=== PATIENT | female | born 1970 | race Caucasian/White ===

== ENCOUNTER 2023-09-01 13:22 | Outpatient (AMB) | payer MEDICAID, SELFPAY ==
--- NOTE | 2023-09-01 13:32 | MHC.PC.OV ---
Vital Signs 09/01/23 13:34 Height 5 ft 5 in Weight 177 lb BMI 29.5 BP 126/72 Blood Pressure Location Rt brachial Position Sitting Pulse 68 Pulse Source Pulse Oximeter Pulse Oximetry (%) 98 Oxygen Delivery Method Room Air Intake Visit Reasons: New patient PE per DR Humphrey Intake Note: pt is here for new patient appt, physical exam. concerns about varicose veins, requesting pap smear today due, patient is also due to colonoscopy and mammogram Strip Deburrer Required: Yes Strip Deburrer Language: Cape Verdean Information Interpreted: non-clinical & clinical Accompanied by: Daughter Allergies No Known Allergies Allergy (Verified 09/01/23 13:37) Medication List - Last Reconciled 09/01/23 by Arlette Humphrey MD No Known Home Meds Tobacco use date assessed: 09/01/23 Dental Screening Dental Screen Date: 09/01/23 Did you have a dental visit in the last 12 months?: Yes Did you have a dental problem in the last 6 months where you did not have access to dental care?: No Was dental information given to patient?: Patient has dentist HPI New patient PE per DR Humphrey HPI Details 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 She came from [facility] 5 months ago. [facility] Surgical History (Updated 09/01/23 @ 14:10 by Arlette Humphrey MD) S/P sclerotherapy of varicose veins Family History (Updated 09/01/23 @ 13:40 by Richmond Barahona [facility]) Other Leukemia Social History (Updated 09/01/23 @ 13:58 by Arlette Humphrey MD) Household Members Other:: , 2 children Housing: House Alcohol intake: never Patient Tobacco Use Status: Never used Tobacco e-Cigarette/Vaping Use: Never Used Current occupational status: unemployed Cognitive needs: No Hearing needs: No Vision needs: No Questionnaire PHQ-9 Over the last 2 weeks, how often have you been bothered by any of the following problems? 1. Little interest or pleasure in doing things: not at all 2. Feeling down, depressed, or hopeless: not at all 3. Trouble falling or staying asleep, or sleeping too much: not at all 4. Feeling tired or having little energy: not at all 5. Poor appetite or overeating: not at all 6. Feeling bad about yourself - or that you are a failure or have let yourself or your family down: not at all 7. Trouble concentrating on things, such as reading the newspaper or watching television: not at all 8. Moving or speaking so slowly that other people could have noticed. Or the opposite - being so fidgety or restless that you have been moving around a lot more than usual: not at all 9. Thoughts that you would be better off or of hurting yourself in some way: not at all Total score: 0 Depression Screening Interpretation: Negative Depression Screening Done: Yes 42503 - PHQ-9 Billing: Yes Source: Developed by Drs. Onur Mane, Jaqui Jean-Baptiste, Jordin Romero and colleagues, with an educational hamlet from [email or web address]. Thrive Questionnaire Date Thrive assessed: 09/01/23 I am a: Patient What is your living situation today?: I have a steady place to live Within the past 12 months, did the food you bought not last and you didn't have the money to get more?: Never true Within the past 12 months, did you worry whether your food would run out before you got money to buy more?: Never true Do you have trouble paying for medicines?: No Do you have trouble getting transportation to medical appointments?: No Do you have trouble paying your heating and electricity bill?: No Do you have trouble taking care of your child, family member or friend?: No Do you have trouble with day-to-day activities such as bathing, preparing meals, shopping, managing finances, etc.?: No Are you currently unemployed and looking for a job?: No Are you interested in more education?: No Please select the resources that you would like help with: None Currently or been in a relationship where the following occur: no concerns reported AUDIT C Alcohol Use Questionnaire (AUDIT-C) 1. How often do you have a drink containing alcohol?: Never 3. How often do you have six or more drinks on one occasion?: Never Total Score: 0 Score Reviewed/Action Taken: Yes ALICIA-7 AMB Questionnaire ALICIA-7 Date ALICIA - 7 assessed: 09/01/23 Feeling nervous, anxious, or on edge: 0 = Not at all Not being able to stop or control worryin = Not at all Worrying too much about different things: 0 = Not at all Trouble relaxin = Not at all Being so restless that it is hard to sit still: 0 = Not at all Becoming easily annoyed or irritable: 0 = Not at all Feeling afraid as if something awful might happen: 0 = Not at all Total ALICIA-7 score (0-4 normal; 5-9 mild; 10-14 moderate; 15-21 severe): 0 Source: Developed by Drs. Onur Mane, Jaqui Jean-Baptiste, Jordin Romero and colleagues, with an educational hamlte from [email or web address]. ALICIA-7 Assessment Billing ALICIA-7 Assessment Tool: ALICIA-7 Assessment 55985 Review of Systems Const All systems reviewed & are unremarkable except as noted in HPI and below Reports no additional complaints Eyes Reports no additional complaints ENT Reports no additional complaints Card Reports no additional complaints Resp Reports no additional complaints GI Reports no additional complaints Reports no additional complaints Musc Reports no additional complaints Physical exam (Primary Care) Vital Signs: Last Vital Signs Pulse 68 09/01/23 13:34 BP 126/72 09/01/23 13:34 Pulse Ox 98 09/01/23 13:34 Oxygen Delivery Method Room Air 09/01/23 13:34 BMI result Body Mass Index 29.5 Tobacco/Smoking Status: Tobacco use Status Tobacco use date assessed 09/01/23 09/01/23 13:42 Patient Tobacco Use Status Never used Tobacco 09/01/23 13:42 e-Cigarette/Vaping Use Never Used 09/01/23 13:42 PHQ-9: PHQ-9 Score PHQ-9: Total score 0 09/01/23 13:46 Depression Screening Interpretation: Negative Thrive Assessment: Date of Thrive Assessment Date Thrive assessed 09/01/23 09/01/23 13:46 Currently or been in a relationship where the following occur: no concerns reported Const General: no acute distress HENMT Head: Yes normal to inspection Ears: hearing grossly normal bilaterally Face and sinus: Yes normal facial exam Throat: Yes posterior oropharynx normal Eyes General: appearance normal, both eyes and all related structures Neck Neck: Yes no lymphadenopathy and Yes supple Thyroid: diffusely enlarged Resp Effort & Inspection: normal respiratory effort Auscultation: clear to auscultation bilaterally Cardio Rhythm: regular rhythm Heart sounds: S1 normal heart sound present and S2 normal heart sound present GI Inspection: Yes normal to inspection Palpation (GI): Soft to palpation Percussion: Yes normal to percussion Auscultation: normal bowel sounds Extrem Other: Slightly decreased range of motion and crepitus of the right knee, no soft tissue swelling erythema warmth General: Yes no clubbing, cyanosis or edema Assessment and Plan Assessment & Plan (1) Annual physical exam: Code(s): Z00.00 - Encounter for general adult medical examination without abnormal findings Plan: Well-balanced diet and regular physical activity discussed with the patient. she will return for fasting blood work, mammogram will be scheduled and patient will be referred to GI for colonoscopy (2) Thyroid nodule: Code(s): E04.1 - Nontoxic single thyroid nodule Plan: Obtain thyroid ultrasound (3) Hx of partial thyroidectomy: Comment: in [facility] for nodules Code(s): E89.0 - Postprocedural hypothyroidism (4) Normal pelvic exam: Comment: 2022 [facility] Code(s): Z01.419 - Encounter for gynecological examination (general) (routine) without abnormal findings (5) Varicose veins of both lower extremities: Code(s): I83.93 - Asymptomatic varicose veins of bilateral lower extremities Orders: Orders Complete Blood Count Auto Diff Today E04.1 - Nontoxic single thyroid nodule, E89.0 - Postprocedural hypothyroidism, Z00.00 - Encounter for general adult medical examination without abnormal findings MM screening mammo BI Today Z12.31 - Encounter for screening mammogram for malignant neoplasm of breast US thyroid Today E04.1 - Nontoxic single thyroid nodule, E89.0 - Postprocedural hypothyroidism Comprehensive [place]. Panel Fast Today E04.1 - Nontoxic single thyroid nodule, E89.0 - Postprocedural hypothyroidism, Z00.00 - Encounter for general adult medical examination without abnormal findings Lipid Panel Today E04.1 - Nontoxic single thyroid nodule, E89.0 - Postprocedural hypothyroidism, Z00.00 - Encounter for general adult medical examination without abnormal findings TSH reflex Free T4 Today E04.1 - Nontoxic single thyroid nodule, E89.0 - Postprocedural hypothyroidism, Z00.00 - Encounter for general adult medical examination without abnormal findings Referrals Gastroenterology Referral Z00.00 - Encounter for general adult medical examination without abnormal findings Coding Level of Care Code New Pt Prev Care 40-64y(34535) Diagnoses Annual physical exam Z00.00 Thyroid nodule E04.1 Hx of partial thyroidectomy E89.0 Normal pelvic exam Z01.419 Varicose veins of both lower extremities I83.93 Additional Codes ALICIA-7 Assessment Billing - ALICIA-7 Assessment Tool: ALICIA-7 Assessment [id number] ([id number])
[2023-09-01 13:34] VITALS: BP 126/72; PULSE 68; O2SAT 98; BMI 29.5
== END 2023-09-01 14:18 | disposition home or self-care (01) ==
PROVIDERS: Visit Provider Internal Medicine
DX: Z00.00 Encounter for general adult medical examination without abnormal findings (principal); E04.1 Nontoxic single thyroid nodule; E89.0 Postprocedural hypothyroidism; Z01.419 Encounter for gynecological examination (general) (routine) without abnormal findings; I83.93 Asymptomatic varicose veins of bilateral lower extremities
CPT/HCPCS: 99386

== ENCOUNTER 2023-09-22 13:51 | Outpatient (REF) | payer MEDICAID, SELFPAY ==
--- NOTE | ~2023-09-22 | MM_ITS ---
EXAMINATION: MM SCREENING DIGITAL BREAST TOMOSYNTHESIS, BILATERAL CLINICAL INFORMATION: Screening. Asymptomatic. COMPARISON: Mammography: There are no prior mammograms available for comparison. TECHNIQUE: Digital breast tomosynthesis is performed in both the craniocaudal and mediolateral oblique views along with computer-aided detection (CAD). Synthesized 2D images are generated from the tomosynthesis. FINDINGS: There are scattered areas of fibroglandular density (ACR BI-RADS breast composition Category b). In the deep third of the superior aspect of the left breast, there is an irregularly shaped asymmetry for which additional mammographic and targeted sonographic evaluation is advised. In the right breast, there are no significant masses, abnormal calcifications, or other abnormalities. MM/MM tomosynthesis screening BI IMPRESSION: Asymmetry of the left breast warrants additional mammographic and targeted sonographic evaluation. A laterally exaggerated CC view of the left breast should be added to the diagnostic imaging protocol. No mammographic signs of malignancy right breast. ASSESSMENT: BI-RADS BI-RADS 0 - Incomplete: Needs additional Imaging. RECOMMENDATION: 1. Additional views of the left breast. 2. Targeted ultrasound if warranted after review of the additional views. 3. Radiology department staff will contact the patient for additional imaging. Additional Imaging required This examination should not preclude the clinical evaluation of a suspicious palpable abnormality. This patient's information was entered into a reminder system with a target due date for their next mammogram.
== END 2023-09-22 13:52 | disposition home or self-care (01) ==
LOC: HO.MAMMO 13:51
PROVIDERS: PCP Internal Medicine; Visit Provider Internal Medicine
DX: Z12.31 Encounter for screening mammogram for malignant neoplasm of breast (principal)
CPT/HCPCS: 77063; 77067

== ENCOUNTER → 2023-09-22 14:00 | Outpatient (BNV) | payer MEDICAID, SELFPAY | PROVIDERS: PCP Internal Medicine; Visit Provider Radiology Diagnostic Radiology | DX: Z12.31 Encounter for screening mammogram for malignant neoplasm of breast (principal) | CPT/HCPCS: 77063; 77067 ==

== ENCOUNTER 2023-11-11 13:23 | Outpatient (REF) | payer MEDICAID, SELFPAY ==
--- NOTE | ~2023-11-11 | US_ITS ---
EXAMINATION: MM DIAGNOSTIC DIGITAL BREAST TOMOSYNTHESIS, LEFT US BREAST LIMITED, LEFT MAMMOGRAPHY: CLINICAL INFORMATION: Callback diagnostic mammogram and ultrasound for irregular asymmetry in the superior aspect of the left breast, posterior one third. COMPARISON: Mammography: 09/22/2023 baseline exam. TECHNIQUE: Digital breast tomosynthesis is performed in the following views: Full-field left 3-D mediolateral view, full-field left 3-D laterally exaggerated CC view, and small paddle spot 3-D compression left MLO view were obtained. Computer-aided diagnosis was used for this study. FINDINGS: There are scattered areas of fibroglandular density (ACR BI-RADS breast composition Category b). Within the high axillary tail of the left breast, or possibly within the low left axilla, there is a stellate irregular mass measuring 1.2 cm in diameter on mammography, which can only be visualized on the mediolateral, and spot MLO views. It is too far posterior to be seen on the exaggerated lateral CC view. This will be evaluated by ultrasound but is a suspicious abnormality. Otherwise, no new or suspicious finding is evident within the left breast. ULTRASOUND: CLINICAL INFORMATION: Evaluate stellate mass in the left axillary tail/left lower axilla. COMPARISON: None TECHNIQUE: Targeted sonographic evaluation was performed using a high frequency linear transducer. Attention focused on the left axillary tail and axilla. Selected archived documentation. FINDINGS: LEFT BREAST: Within what appears to be the left axillary tail, there is a irregular markedly hypoechoic mildly vascular mass, with no definite posterior features, microlobulated irregular margins, and surrounding hyperechoic fat. There is sonographic equivalent of spiculation. This abnormality abuts the pectoralis fascia and measures approximately 1.2 x 0.8 x 0.8 cm. This is a suspicious abnormality and ultrasound-guided biopsy is recommended. There are no additional suspicious abnormalities in the left axillary tail or left axilla. There are no abnormal appearing lymph nodes identified. US/US breast LT limited mamm only IMPRESSION: Irregular suspicious mass in the left axillary tail measuring 1.2 x 0.8 x 0.8 cm, for which ultrasound-guided biopsy is recommended. There is no abnormal adenopathy seen in the left axillary region. There are no new abnormalities or suspicious abnormalities identified within the left breast. Findings and recommendations were communicated to the patient with the aid of the translation phone service, as patient only speaks [place]. She appeared to understand the findings and plan. OVERALL ASSESSMENT: Mammography: BI-RADS 4 - Suspicious finding Ultrasound: BI-RADS 4 - Suspicious finding RECOMMENDATION: Biopsy recommended
== END 2023-11-11 13:24 | disposition home or self-care (01) ==
LOC: HO.MAMMO 13:23
PROVIDERS: PCP Internal Medicine; Visit Provider Internal Medicine
DX: N64.89 Other specified disorders of breast (principal)
CPT/HCPCS: 76642; 77061; 77065

== ENCOUNTER → 2023-11-11 13:30 | Outpatient (BNV) | payer MEDICAID, SELFPAY | PROVIDERS: PCP Internal Medicine; Visit Provider Radiology Diagnostic Radiology | DX: R92.8 Other abnormal and inconclusive findings on diagnostic imaging of breast (principal) | CPT/HCPCS: 76642; 77061; 77065 ==

== ENCOUNTER 2023-11-17 08:38 | Outpatient (AMB) | payer MEDICAID, SELFPAY ==
--- NOTE | 2023-11-17 08:46 | MHC.OFFVIS ---
Intake Vital Signs 11/17/23 08:47 Height 5 ft 5 in Weight 180 lb BMI 30.0 BP 132/65 Blood Pressure Location Rt brachial Position Sitting Pulse 67 Intake Visit Reasons: US guided Bx Lt breast 2 o'clock mass Intake Note: This patient presents for a breast consult for Ultrasound guided biopsy for left breast 2 o'clock mass. Patient c/o; reports occasional pain left breast. Dye House Helper Required: Yes Dye House Helper Language: [place] Leonean Dye House Helper Name: [id number] Information Interpreted: non-clinical & clinical Accompanied by: Daughter Allergies No Known Allergies Allergy (Verified 11/17/23 08:51) HPI US guided Bx Lt breast 2 o'clock mass HPI Details 53-year-old female referred for breast mass. She had undergone a screening mammogram showing this mass on the left breast near the axillary tail. She was brought back for targeted studies. Her ultrasound and targeted mammogram show an irregular suspicious mass in the left axillary tail measuring about 1.2 x 0.8 x 0.8 cm. An ultrasound-guided biopsy was recommended. She denies any palpable breast masses. She denies any nipple or skin changes Her menarche was at age of 12. Her 1st was at age of 17. She had 3 pregnancies. She had menopause at age of 48. She denies any family history of breast cancer. [facility] Medical History (Updated 11/16/23 @ 16:13 by Telly Bundy MD) Left breast mass Surgical History (Updated 09/01/23 @ 14:10 by Arlette Humphrey MD) S/P sclerotherapy of varicose veins Family History (Updated 09/01/23 @ 13:40 by Richmond Barahona CMA) Mother No problems noted. Other Leukemia Social History (Updated 09/01/23 @ 13:58 by Arlette Humphrey MD) Household Members Other:: , 2 children Housing: House Alcohol intake: never Patient Tobacco Use Status: Never used Tobacco e-Cigarette/Vaping Use: Never Used Current occupational status: unemployed Cognitive needs: No Hearing needs: No Vision needs: No Female Reproductive History Menstrual Age of Menarche: 12 Total pregnancies: 2 Review of Systems Const Denies chills and Denies fever(s) Card Denies chest pain, Denies dyspnea and Denies dyspnea on exertion Resp Denies cough, Denies dyspnea and Denies dyspnea on exertion GI Denies hematochezia and Denies change in bowel habits Denies hematuria Musc Denies back pain and Denies limited range of motion Neuro Denies focal weakness and Denies convulsions Psych Denies depression and Denies mood swings Physical Exam Const General: comfortable and no acute distress Orientation/consciousness: patient oriented x3 Neck Neck: Yes no lymphadenopathy Chest Other: No palpable breast masses, no nipple or skin changes, no axillary lymphadenopathy Resp Auscultation: clear to auscultation bilaterally Cardio Rhythm: regular rhythm GI Palpation (GI): Soft to palpation, nontender and no guarding Neuro General: patient oriented x3 Assessment & Plan Assessment & Plan (1) Left breast mass: Code(s): N63.20 - Unspecified lump in the left breast, unspecified quadrant Plan: She has a left breast mass on the axillary tail as described above. An ultrasound-guided biopsy had been recommended by the radiologist. I explained to her the technique of this procedure. I will see her again next week to discuss the path report. The visit was done in the presence of a [place]an lead net software developer. Orders: Orders US breast ndl core biopsy LT 11/16/23 N63.20 - Unspecified lump in the left breast, unspecified quadrant Coding Level of Care Code New Pt Level 3 (96105) Diagnoses Left breast mass N63.20
[2023-11-17 08:47] VITALS: BP 132/65; PULSE 67
== END 2023-11-17 09:04 | disposition home or self-care (01) ==
PROVIDERS: PCP Internal Medicine; Visit Provider Surgery
DX: N63.20 Unspecified lump in the left breast, unspecified quadrant (principal)
CPT/HCPCS: 99203

== ENCOUNTER 2023-11-17 09:09 | Outpatient (REF) | payer MEDICAID, SELFPAY ==
--- NOTE | ~2023-11-17 | MM_ITS ---
PROCEDURE: US GUIDED BREAST BIOPSY, LEFT CLINICAL INFORMATION: Irregular hypoechoic mass within the lower axilla, likely in the tail of Vigil, for which ultrasound-guided biopsy was recommended. COMPARISON: None. PROCEDURAL DETAILS: The details of the procedure, as well as the risks, benefits, and alternatives to the procedure were explained to the patient in detail with the use of mexican food maker services, and all of her questions were answered, after which written informed consent was obtained. Site and side were confirmed. Prior to the procedure, sonography revealed a 1.2 x 0.8 x 0.8 irregular hypoechoic mass in the left tail of Vigil. A time-out was performed, the lesion intended for biopsy was targeted, and the skin of the left breast was then marked, prepped and draped in the usual sterile fashion. Using sonographic guidance, sterile technique, and 1% lidocaine without epinephrine for local anesthesia, multiple core biopsies were obtained through the targeted area with a 14G spring loaded TenderTreeera core biopsy device. There was real-time confirmation of appropriate needle passage. Sampling was documented. At the completion of tissue sampling, a single butterfly-shaped metallic clip was deposited at the biopsy site. There was no evidence of immediate complication. SPECIMEN: 3 well formed core samples were obtained. DIGITAL POST-PROCEDURE MAMMOGRAPHY: Breast density: The tissue contains scattered areas of fibroglandular density. BI-RADS version 5, category B. There are no new mammographic findings demonstrated. The postprocedure one view MLO left direct digital mammogram reveals satisfactory and accurate positioning of the biopsy clip. No hematoma present. The patient tolerated the procedure well and, after assuring adequate hemostasis, was discharged in good condition after reviewing postbiopsy breast care instructions. Final pathology results are pending. MM/MM tomosynthesis diagnostic LT IMPRESSION: 1. No immediate complication from ultrasound-guided percutaneous biopsy left breast. 2. Ultrasound was used to localize and guide marker clip placement. 3. The 1-view direct digital postprocedure mammogram reveals satisfactory positioning of the biopsy clip. CC view was not attempted as this clip/mass is positioned too far in the low axilla to be seen on even an exaggerated CC. 4. Final pathology results are pending. A separate report with final recommendations will be issued once these results are made available.
[2023-11-17] MEDS: Sodium Bicarbonate 8.4% 50 MEQ/50 ML VIAL SUBCUT (10:50)
[2023-11-17] MEDS: Lidocaine HCl 1 % 20 ML VIAL 9 ML SUBCUT (10:51)
== END 2023-11-17 09:10 | disposition home or self-care (01) ==
LOC: HO.MAMMO 09:09
PROVIDERS: PCP Internal Medicine; Visit Provider Surgery
DX: C50.412 Malignant neoplasm of upper-outer quadrant of left female breast (principal); Z17.0 Estrogen receptor positive status [ER+]
CPT/HCPCS: 19083; 77061; 77065; 88305; 88342; 88360; 99202; A4648; C1894

== ENCOUNTER → 2023-11-17 10:00 | Outpatient (BNV) | payer MEDICAID, SELFPAY | PROVIDERS: PCP Internal Medicine; Visit Provider Radiology Diagnostic Radiology | DX: D05.02 Lobular carcinoma in situ of left breast (principal) | CPT/HCPCS: 19083 ==

== ENCOUNTER 2023-11-24 10:25 | Outpatient (AMB) | payer OTHER, SELFPAY ==
[2023-11-24 10:30] VITALS: BP 136/88; PULSE 88
--- NOTE | 2023-11-24 10:30 | A.OFFVIS_ITS ---
Intake Vital Signs 11/24/23 10:30 Height 5 ft 5 in Weight 180 lb BMI 30.0 BP 136/88 Blood Pressure Location Rt brachial Position Sitting Pulse 88 Intake Visit Reasons: US guided Bx Results, Lt breast 2 o'clock mass Intake Note: This patient presents for an assessment for breast biopsy results. Patient c/o; reports bx site healing well. Corporate Buyer Required: No Accompanied by: daughter Sigifredo Allergies No Known Allergies Allergy (Verified 11/24/23 10:31) Medication List - Last Reconciled 11/24/23 by Telly Bundy MD No Known Home Meds HPI US guided Bx Results, Lt breast 2 o'clock mass HPI Details 53-year-old female here for follow-up fo r her left breast mass. She had undergone a screening mammogram showing this mass on the left breast near the axillary tail. She was brought back for targeted studies. Her ultrasound and targeted mammogram show an irregular suspicious mass in the left axillary tail measuring about 1.2 x 0.8 x 0.8 cm. An ultrasound-guided biopsy was done last 11/17/2023 and she is here to discuss the path report. She says she tolerated the biopsy well. She denies any hematoma or ecchymosis. She denies any palpable breast masses. She denies any nipple or skin changes Her menarche was at age of 12. Her 1st was at age of 17. She had 3 pregnancies. She had menopause at age of 48. She denies any family history of breast cancer. [facility] Medical History Invasive ductal carcinoma of left breast Left breast mass Surgical History S/P sclerotherapy of varicose veins Family History Mother No problems noted. Other Leukemia Social History Household Members Other:: , 2 children Housing: House Alcohol intake: never Patient Tobacco Use Status: Never used Tobacco e-Cigarette/Vaping Use: Never Used Current occupational status: unemployed Cognitive needs: No Hearing needs: No Vision needs: No Female Reproductive History Menstrual Age of Menarche: 12 Review of Systems Const Denies chills and Denies fever(s) Card Denies chest pain, Denies dyspnea and Denies dyspnea on exertion Resp Denies cough, Denies dyspnea and Denies dyspnea on exertion GI Denies hematochezia and Denies change in bowel habits Denies hematuria Musc Denies back pain and Denies limited range of motion Neuro Denies focal weakness and Denies convulsions Psych Denies depression and Denies mood swings Physical Exam Vital Signs: Last Vital Signs Pulse 88 11/24/23 10:30 BP 136/88 11/24/23 10:30 BMI result Body Mass Index 30.0 Const General: comfortable and no acute distress Orientation/consciousness: patient oriented x3 Neck Neck: Yes no lymphadenopathy Chest Other: No palpable breast masses, axillary lymphadenopathy Resp Auscultation: clear to auscultation bilaterally Cardio Rhythm: regular rhythm GI Palpation (GI): Soft to palpation, nontender and no guarding Neuro General: patient oriented x3 Assessment & Plan Assessment & Plan (1) Invasive ductal carcinoma of left breast: Code(s): C50.912 - Malignant neoplasm of unspecified site of left female breast Plan: Unfortunately, her path report shows an invasive ductal carcinoma. This is ER/SC positive, HER2 pending. I explained to her treatment options at this time. One option is to proceed with lumpectomy followed by radiation and to do a sentinel biopsy at the same time. The 2nd option is to do a total mastectomy with sentinel node biopsy. I discussed the risks, benefits, and alternatives of both procedures. I told her that the risks include bleeding, infections, flap necrosis for mastectomy, hematoma formation, injury to the nerves in the axilla, blood clots, pneumonia, as well as the benefits and alternatives At this time, she is leaning towards total mastectomy with sentinel biopsy. She understands the option of breast reconstruction and she says she may consider this in the future. I will have her seen by the oncologist before the procedure. Her daughter was with her during the visit and they seemed to understand the plan well. Orders: Referrals Hematology & Oncology Referral C50.912 - Malignant neoplasm of unspecified site of left female breast Coding Level of Care Code Est Pt Level 4 (80097) Diagnoses Invasive ductal carcinoma of left breast C50.912
== END 2023-11-24 10:55 | disposition home or self-care (01) ==
PROVIDERS: PCP Internal Medicine; Visit Provider Surgery
DX: C50.912 Malignant neoplasm of unspecified site of left female breast (principal)
CPT/HCPCS: 99214

== ENCOUNTER → 2023-11-24 10:25 | Outpatient (BNVA) | payer OTHER, SELFPAY | PROVIDERS: PCP Internal Medicine; Visit Provider Surgery | DX: C50.912 Malignant neoplasm of unspecified site of left female breast (principal); Z17.0 Estrogen receptor positive status [ER+] | CPT/HCPCS: 99212 ==

== ENCOUNTER → 2023-12-01 13:00 | Outpatient (BNV) | payer OTHER, SELFPAY | PROVIDERS: PCP Neurological Surgery; Visit Provider Internal Medicine Medical Oncology | DX: C50.912 Malignant neoplasm of unspecified site of left female breast (principal) | CPT/HCPCS: 99204; 99213 ==

== ENCOUNTER 2023-12-14 08:45 | Outpatient (REF) | payer OTHER, SELFPAY ==
--- NOTE | ~2023-12-14 | MM_ITS ---
EXAMINATION: BONE DENSITOMETRY CLINICAL INDICATION: Osteopenia. Breast cancer. COMPARISON: This is the patient's baseline examination. TECHNIQUE: Using a [employer] DXA System (software version: 13.1) manufactured by [employer], dual-energy x-ray absorptiometry was performed of the lumbar spine and left hip. The images are of good technical quality. Summary results are attached. FINDINGS: LEFT FEMUR, NECK: BMD 0.831 g/cm2, Z-score -0.6, T-score -1.5, osteopenia. LEFT FEMUR, TOTAL: BMD 0.902 g/cm2, Z-score -0.3, T-score -0.8, normal. AP SPINE L1-L4: BMD 0.922 g/cm2, Z-score -1.5, T-score -2.2, osteopenia. IDENTIFIED RISK FACTORS: Menopause, osteoporosis. HISTORY OF FRACTURE: None listed. MEDICATIONS: None listed. MM/XR DEXA axial skeleton IMPRESSION: 1. DIAGNOSIS: Osteopenia based on the lowest T-score value of -2.2 in the lumbar spine applying World Health Organization criteria. 2. 10-YEAR FRACTURE RISK PREDICTION, FRAX: Major osteoporotic fracture (clinical spine, forearm, hip or shoulder) 6.9%. Hip fracture 0.5%. 3. Treatment Recommendations: NOF guidelines recommend consideration for treatment in postmenopausal women and men age 50 and older presenting with the following: -A hip or vertebral (clinical or morphometric) fracture. -T-score less than or equal to -2.5 at the femoral neck or spine after appropriate evaluation to exclude secondary causes. -Low bone mass at the hip or spine and a 10-year fracture probability by FRAX of greater than or equal to 3% for hip fracture or greater than or equal to 20% for major osteoporotic fracture based on the [place] adapted WHO algorithm. 4. Other Recommendations: All treatment decisions require clinical judgment and consideration of individual patient factors, including patient preferences, comorbidities, previous drug use, risk factors not captured in the FRAX model (e.g. frailty, falls, vitamin D deficiency, increased bone turnover, interval significant decline in bone density) and possible under or overestimation of fracture risk by FRAX. Additional medical evaluation for secondary cause of low bone mineral density may be appropriate. FUTURE SCAN RECOMMENDATION: People with diagnosed cases of osteoporosis or at high risk for fracture should have regular bone mineral density tests. For patients eligible for Medicare, routine testing is allowed once every 2 years. The testing frequency can be increased to one year for patients who have rapidly progressing disease, those who are receiving or discontinuing medical therapy to restore bone mass, or have additional risk factors.
== END 2023-12-14 08:46 | disposition home or self-care (01) ==
LOC: HO.MAMMO 08:45
PROVIDERS: PCP Internal Medicine; Visit Provider Neurological Surgery
DX: Z13.820 Encounter for screening for osteoporosis (principal); M85.80 Other specified disorders of bone density and structure, unspecified site; Z78.0 Asymptomatic menopausal state
CPT/HCPCS: 77080

== ENCOUNTER → 2023-12-15 07:19 | Day surgery (SDC) | payer OTHER, SELFPAY ==
--- NOTE | 2023-12-13 14:56 | HO.ANESPROP2 ---
HPI - Anesthesia Eval Consult details Narrative: 53yo F for Left Mastectomy Simple PMFSH Active Problems Active Problems: All Active Problems (Updated 12/01/23 @ 13:57 by Hector Blakely MD) Invasive ductal carcinoma of left breast (Acute) Left breast mass (Acute) Varicose veins of both lower extremities (Acute) Normal pelvic exam (Acute) Hx of partial thyroidectomy (Acute) Thyroid nodule (Acute) Annual physical exam (Acute) Past Medical History Medical History Invasive ductal carcinoma of left breast Left breast mass Family History Family History Mother No problems noted. Other Leukemia Surgical History Surgical History S/P sclerotherapy of varicose veins Social History Social History (Updated 12/01/23 @ 13:12 by Macey Todd) Household Members Other:: , 2 children Housing: House Alcohol intake: never Patient Tobacco Use Status: Never used Tobacco e-Cigarette/Vaping Use: Never Used service: No Current occupational status: unemployed Cognitive needs: No Hearing needs: No Vision needs: No Meds Allergies Allergy/AdvReac Type Severity Reaction Status Date / Time No Known Allergies Allergy Verified 12/01/23 13:12 Home Medications Medication Instructions Recorded Confirmed Last Taken Type No Known Home Meds 09/01/23 12/01/23 Unknown History Exam Height,Weight and Vital Signs: Height 5 ft 5 in Weight 81.647 kg Pertinent Lab Results Pertinent Lab Results: Laboratory Tests 12/01/23 13:57 WBC 7.7 Hgb 14.0 Hct 40.6 Plt Count 336 Sodium 142 Potassium 4.4 Chloride 108 Carbon Dioxide 25 BUN 20 H Creatinine 0.75 Assessment and Plan Assessment Anesthesia Assessment: Chart Reviewed
--- NOTE | ~2023-12-15 | MM_ITS ---
EXAMINATION: MM SPECIMEN X-RAY BREAST, LEFT BREAST CLINICAL INDICATION: Left breast invasive ductal carcinoma with lobular features, grade 1, and ductal carcinoma in situ grade 1. Surgical excision specimen. COMPARISON: Localization left breast for 12/19/2023. TECHNIQUE: 2 radiographs of 2 excised specimens of breast tissue were submitted post surgery. MM/MM surgical specimen FINDINGS/IMPRESSION: The first specimen radiograph contains the spiculated mass, a solitary rounded lymph node, and to the RFID tag centrally within the specimen. The second specimen submitted for review demonstrates the presence of a solitary lymph node centrally, however no biopsy clip is present in either of the specimens. In discussion with Dr. Bundy, the biopsy clip may have been suctioned or have fallen out of the specimen during transportation, however he is confident he excised the spiculated mass with RFID tag in entirety. Await pathology.
--- NOTE | 2023-12-15 08:34 | PC.NURSE ---
pt change mind wants lumpectomy dr shirley speaking to pt will reschedule
== END | disposition home or self-care (01) ==
PROVIDERS: PCP Internal Medicine; Visit Provider Surgery
DX: C50.912 Malignant neoplasm of unspecified site of left female breast (principal); Z53.29 Procedure and treatment not carried out because of patient's decision for other reasons

== ENCOUNTER 2023-12-19 07:56 | Outpatient (REF) | payer OTHER, SELFPAY ==
--- NOTE | ~2023-12-19 | MM_ITS ---
EXAMINATION: ULTRASOUND GUIDED RFID LOCALIZATION BREAST, LEFT CLINICAL INFORMATION: IDC grade 1, low left axilla, likely within tail of Vigil, for localization with RFID tag. COMPARISON: 11/17/2023 needle biopsy and post needle biopsy mammography. 11/11/2023 diagnostic ultrasound and mammography. 09/12/2023 screening mammography. TECHNIQUE NEEDLE LOC: Proper informed consent is obtained from the patient after discussion of the procedure, utilizing the b2b appointment setter surface via telephone. This patient speaks only Finnish. Potential risks and complications, and alternatives including declining the procedure today were discussed. Patient was given an opportunity for any and all questions. The patient appeared to understand. The patient consented to the procedure and signed the consent form. GUIDANCE: Real-time ultrasound. APPROACH: Lateral. TARGET: Mass with internal biopsy clip left low axilla. ANESTHESIA: carbonated lidocaine 1%: 5 mL. LOCALIZATION SYSTEM: [employer] LOCallizer Wire-Free Guidance System with 12g 7 CM needle applicator. RADIOFREQUENCY TAG: ID # [id number] DERMATOTOMY: 1 mm skin-ernestine dermatotomy performed. RF Tag ID confirmed with LOCalizer Guidance System prior to placement. The skin is prepped and local anesthesia administered. The needle is positioned with the tip in the mass lesion, and RFID tag was deployed. Final mammographic images taken including left MLO and Maritza view CC demonstrate the LOCalizer RF tag to reside directly abutting the biopsy clip and within the anterior aspect of the hypoechoic irregular mass. The patient tolerated the procedure well and had no immediate complications. Dressing placed and home instructions reviewed. MM/MM tomosynthesis diagnostic LT IMPRESSION: -Status post ultrasound-guided left breast RFID localization. -Final mammographic images were appropriately labeled for assistance in the OR.
--- NOTE | ~2023-12-19 | US_ITS ---
EXAMINATION: ULTRASOUND GUIDED RFID LOCALIZATION BREAST, LEFT CLINICAL INFORMATION: IDC grade 1, low left axilla, likely within tail of Vigil, for localization with RFID tag. COMPARISON: 11/17/2023 needle biopsy and post needle biopsy mammography. 11/11/2023 diagnostic ultrasound and mammography. 09/12/2023 screening mammography. TECHNIQUE NEEDLE LOC: Proper informed consent is obtained from the patient after discussion of the procedure, utilizing the director supplier quality surface via telephone. This patient speaks only Bhutanese. Potential risks and complications, and alternatives including declining the procedure today were discussed. Patient was given an opportunity for any and all questions. The patient appeared to understand. The patient consented to the procedure and signed the consent form. GUIDANCE: Real-time ultrasound. APPROACH: Lateral. TARGET: Mass with internal biopsy clip left low axilla. ANESTHESIA: carbonated lidocaine 1%: 5 mL. LOCALIZATION SYSTEM: [employer] LOCallizer Wire-Free Guidance System with 12g 7 CM needle applicator. RADIOFREQUENCY TAG: ID # [id number] DERMATOTOMY: 1 mm skin-ernestine dermatotomy performed. RF Tag ID confirmed with LOCalizer Guidance System prior to placement. The skin is prepped and local anesthesia administered. The needle is positioned with the tip in the mass lesion, and RFID tag was deployed. Final mammographic images taken including left MLO and Maritza view CC demonstrate the LOCalizer RF tag to reside directly abutting the biopsy clip and within the anterior aspect of the hypoechoic irregular mass. The patient tolerated the procedure well and had no immediate complications. Dressing placed and home instructions reviewed. US/US breast needle loc LT IMPRESSION: -Status post ultrasound-guided left breast RFID localization. -Final mammographic images were appropriately labeled for assistance in the OR.
[2023-12-19] MEDS: Lidocaine HCl 1 % 20 ML VIAL 9 ML SUBCUT (09:24)
[2023-12-19] MEDS: Sodium Bicarbonate 8.4% 50 MEQ/50 ML VIAL SUBCUT (09:25)
== END 2023-12-19 07:57 | disposition home or self-care (01) ==
LOC: HO.MAMMO 07:56
PROVIDERS: PCP Internal Medicine; Visit Provider Surgery
DX: N63.20 Unspecified lump in the left breast, unspecified quadrant (principal)
CPT/HCPCS: 19285; 77061; 77065; C1819

== ENCOUNTER → 2023-12-19 08:45 | Outpatient (BNV) | payer OTHER, SELFPAY | PROVIDERS: PCP Internal Medicine; Visit Provider Radiology Diagnostic Radiology | DX: C50.912 Malignant neoplasm of unspecified site of left female breast (principal) | CPT/HCPCS: 19085; 77065 ==

== ENCOUNTER 2024-01-05 09:47 | Day surgery (SDC) | payer OTHER, SELFPAY ==
--- NOTE | 2024-01-04 13:02 | P.CONAN_ITS ---
HPI - Anesthesia Eval Consult details Narrative: 53yo F for Left Breast Lumpectomy w/LOCalizer, [place] Node Biopsy PMFSH Active Problems Active Problems: All Active Problems Invasive ductal carcinoma of left breast (Acute) Left breast mass (Acute) Varicose veins of both lower extremities (Acute) Normal pelvic exam (Acute) Hx of partial thyroidectomy (Acute) Thyroid nodule (Acute) Annual physical exam (Acute) Past Medical History Medical History Endometrial polyp HTN (hypertension) Invasive ductal carcinoma of left breast Left breast mass Family History Family History Mother No problems noted. Other Leukemia Surgical History Surgical History Hx of partial thyroidectomy S/P sclerotherapy of varicose veins Social History Social History Household Members Other:: , 2 children Housing: House Alcohol intake: never Patient Tobacco Use Status: Never used Tobacco e-Cigarette/Vaping Use: Never Used Use of substances other than those prescribed or required for medical reasons: No Are you DNR?: No Advance Directives: No Advance Directives Information Provided: Yes Patient : No service: No Current occupational status: unemployed Cognitive needs: No Hearing needs: No Vision needs: No Meds Allergies Allergy/AdvReac Type Severity Reaction Status Date / Time No Known Allergies Allergy Verified 01/05/24 10:44 Exam Height,Weight and Vital Signs: Height 5 ft 5 in Weight 81.647 kg Pertinent Lab Results Pertinent Lab Results: Laboratory Tests 12/01/23 13:57 WBC 7.7 Hgb 14.0 Hct 40.6 Plt Count 336 Sodium 142 Potassium 4.4 Chloride 108 Carbon Dioxide 25 BUN 20 H Creatinine 0.75 Assessment and Plan Assessment Anesthesia Assessment: Chart Reviewed
[2024-01-05] VITALS (7 sets, daily range): BP systolic 108–133; BP diastolic 57–77; PULSE 47–66; RESP 15–18; TEMP 36.1–36.4; O2SAT 96–99
--- NOTE | ~2024-01-05 | NM_ITS ---
EXAMINATION: NM LYMPH SCINTIGRAPHY CLINICAL INFORMATION: Left breast invasive ductal carcinoma. COMPARISON: 11/17/2023, localization 12/19/2023 TECHNIQUE: A total of 0.5 mCi technetium 99m Lymphoseek was divided into 4 syringes aliquots of 0.125 mCi, and injected intradermally in the left periareolar at 12:00, 3:00, 6:00, and 9:00. Images were taken at 30 and 60 minutes in the anterior, SYRIAC, and left lateral positions. FINDINGS: Images demonstrate strong activity at the injection sites around the left nipple. At 60 minutes, no definite activity can be seen in the left axillary region or within a sentinel lymph node. NM/NM sentinel node w imaging IMPRESSION: No definite sentinel node identified on this exam.
[2024-01-05] MEDS: Lidocaine 4 % Cream KIT 1 APPL TOPICAL (10:42)
[2024-01-05] MEDS: Lactated Ringers 1,000 ML 100 ML IVCONT (11:12)
--- NOTE | 2024-01-05 13:07 | MHC.SHP ---
Pre-Procedural Eval Section A - 24 Hr Update-Section A only Date of Service: 01/05/24 Section B - Complete if H&P > 30 days Chief Complaint: Malignant neoplasm of unspecified site of left fem Details of Present Illness: has invasive ductal cancer left breast Relevant Family History (Specify if Yes): No Relevant Social History: None Present Medications: see Short Stay Collaborative assessment Medical History: Significant History (thryoid ds) Allergies: Allergies Allergy/AdvReac Type Severity Reaction Status Date / Time No Known Allergies Allergy Verified 01/05/24 10:44 Review of Systems Sugical H&P ROS: Negative: Constitution, Cardiovascular, Respiratory, Neurological, Psychiatric, Hem-Onc, Allergic/Immunologic, Gastrointestinal, Genitourinary, Musculoskeletal, Integumentary, Endocrine and Eyes/Ears/Nose/Throat Exam Surgical H&P Exam: Normal: HEENT, Normal: Heart, Normal: Lungs, Normal: Extremities, Normal: Abdomen, Normal: Skin and Normal: Neurological Plan Diagnosis/Plan: Unchanged I have reviewed the history and physical and performed a pertinent physical examination on my patient. No changes have occurred unless specified. Time Spent With Patient Time: Total time managing care of this patient today ____ minutes.
--- NOTE | 2024-01-05 13:52 | HO.ANESPROP2 ---
ON LICENSE OF [facility] Active Problems Active Problems: All Active Problems Varicose veins of both lower extremities (Acute) Normal pelvic exam (Acute) Hx of partial thyroidectomy (Acute) Thyroid nodule (Acute) Annual physical exam (Acute) Invasive ductal carcinoma of left breast (Acute) Left breast mass (Acute) Past Medical History Medical History Endometrial polyp HTN (hypertension) Invasive ductal carcinoma of left breast Left breast mass Functional capacity: independent ambulation Patient : No Family History Family History Mother No problems noted. Other Leukemia Family history of problems with anesthesia: No Surgical History Surgical History Hx of partial thyroidectomy S/P sclerotherapy of varicose veins Social History Social History Household Members Other:: , 2 children Housing: House Alcohol intake: never Patient Tobacco Use Status: Never used Tobacco e-Cigarette/Vaping Use: Never Used Use of substances other than those prescribed or required for medical reasons: No Are you DNR?: No Advance Directives: No Advance Directives Information Provided: Yes service: No Current occupational status: unemployed Cognitive needs: No Hearing needs: No Vision needs: No Meds Allergies Allergy/AdvReac Type Severity Reaction Status Date / Time No Known Allergies Allergy Verified 01/05/24 10:44 Active Medications: Current Medications Lactated Ringer's (Lr) 1,000 mls @ 100 mls/hr IVCONT .Q10H BLAIRE Last Admin: 01/05/24 11:12 Dose: 100 mls/hr Home Medications ?Medication ?Instructions ?Recorded ?Confirmed ?Last Taken ?Type No Known Home Meds 09/01/23 12/01/23 Unknown History Exam Height,Weight and Vital Signs: Height 5 ft 5 in Weight 81.647 kg Last Vital Signs Temp 97.5 F 01/05/24 11:05 Pulse 64 01/05/24 11:05 Resp 15 01/05/24 11:05 BP 133/77 01/05/24 11:05 Pulse Ox 98 01/05/24 11:05 O2 Del Method Room Air 01/05/24 11:05 Airway Mallampati Class: II TM Dist: >3cm Neck ROM: Full Heart: RRR Lungs: CTA Assessment and Plan Assessment Anesthesia Assessment: Anesthesia Plan Discussed Final Anesthetic Review Family History of Problems with Anesthesia: No NPO: Yes ASA Class: II Final Preanesthetic Review: Meds/Allgs Chart Reviewed, Consent Obtained/Reviewed and Anes Risks/Benef Reviewed Patient Risk: Low Procedure Risk: Low Anesthetic Plan Anesthetic Plan: GA Disposition: Standard PACU
--- NOTE | 2024-01-05 15:31 | W.PM.OPN ---
Operative Note Operative Note Date of Service: 01/05/24 Narrative: Preop diagnosis: Invasive ductal cancer left breast Postop diagnosis: Same Procedure: Left breast lumpectomy with Hologic localizer, sentinel node biopsy of the left axilla Surgeon: Telly Bundy MD evaluation assistant: STERLING Scanlon The patient is a 53-year-old female with a recent diagnosis of invasive ductal carcinoma of the left breast. She wanted to proceed with lumpectomy with sentinel biopsy instead of mastectomy. She understood the technique of the procedure as well as the risks, benefits, and alternatives The areolar area had been injected earlier with the nuclear tracer by the radiologist. I had reviewed her scintigraphy images, and this did not reveal obvious uptake in the axilla. The patient was brought to the operating room placed supine under general anesthesia via laryngeal mask airway. The arm was abducted to expose the axilla. The left breast and axilla were prepped and draped usual sterile fashion. A surgical time-out was done. The patient received cefazolin 2 g IV preoperatively I had also infiltrated the perianal area earlier after induction with methylene blue dye. I then passed the Hologic localizer to identify the area closest to the I would the clip. This was marked. I infiltrated this with lidocaine 1%. This was on the area of the left upper quadrant near the axilla. The incision using blade 15. This carried down through the full-thickness of the skin subcutaneous fat. I then periodically used the Hologic localizer to identify the location of the RFID clip. I used the curved Cobos scissors to divide breast tissue surrounding the proximate area of the I did clip and I dissected circumferentially, carefully following the signals of the Hologic localizer to make sure we had the lesion within the specimen with adequate margins. The specimen was delivered. A re-ray done in the OR. The RFID clip was seen but the initial biopsy clip was not visible I excised more tissue in the deeper margins and this was went with the initial specimen I then used the Trunode probe to identify sentinel nodes. Since the incision was already closed with the axilla, I did not make an extra incision. I identified high counts in the axilla just at the border of the pectoralis. These were both excised. The sentinel node# 1 had a count of about 44. The sentinel node 2 had a count about 71. We sent these additional margin as well as the sentinel nodes for re-ray as well but this does not reveal any biopsy clip. Additional axillary tissue without elevated counts with the gamma probe was sent as a specimen as well. I copiously irrigated the axilla as well as the lumpectomy site. I achieved hemostasis with electrocautery. Once hemostasis was confirmed, I applied a lap pad. I went down to the pathology department to review the specimens with the pathologist. The biopsy site in the tumor was within the specimen along with the RFID clip but the initial biopsy clip itself could not be found. It appeared that the tumor was close to the anterior margin. I therefore went back to the operating room and re- scrubbed. I removed additional anterior marginsand this was sent to pathology as well . It is noted the the anterior mergin was actually right under the skin flap. I re-irrigated and observed for hemostasis. Once hemostasis was confirmed, I reapposed deep breast tissue with Polysorb 3-0 interrupted sutures. Skin closure was achieved with Polysorb 4-0 subcuticular running sutures. Steri-Strips and dressings were applied. The incision was infiltrated with Marcaine 0.5% for postop analgesia. The procedure was completed The patient tolerated procedure well. There were no immediate complications. Initial final counts of sponges and instruments were correct. Estimated blood loss about 40 cc The patient was extubated without difficulty and transferred to the recovery room with stable vital signs. The re-ray images were also discussed with the radiologist. Breast [place] Node Biopsy Substrate(s) used for sentinel node biopsy in the non-neoadjuvant setting: Dye and Radiotracer Substrate(s) used for sentinel node biopsy in the neoadjuvant setting: N/A All colored nodes or non-colored nodes present at the end of a dye filled lymphatic channel were removed, if dye was used as the substrate for localization: Yes All significantly radioactive nodes were removed, if radionuclide was used as the substrate for localization: Yes All palpably suspicious nodes were removed, if present: N/A If clips were placed in pathology-involved nodes, those nodes were identified and removed: Yes General Surg. - Synoptic Notes Breast [place] Node Biopsy Substrate(s) used for sentinel node biopsy in the non-neoadjuvant setting: Dye and Radiotracer Substrate(s) used for sentinel node biopsy in the neoadjuvant setting: N/A All colored nodes or non-colored nodes present at the end of a dye filled lymphatic channel were removed, if dye was used as the substrate for localization: Yes All significantly radioactive nodes were removed, if radionuclide was used as the substrate for localization: Yes All palpably suspicious nodes were removed, if present: N/A If clips were placed in pathology-involved nodes, those nodes were identified and removed: Yes
[2024-01-05] MEDS: fentaNYL citrate/PF 100 MCG/2 ML VIAL 50 MCG IVPUSH (16:10)
[2024-01-05] MEDS: oxyCODONE HCl Immed Release 5 MG TABLET PO (16:13)
== END 2024-01-05 16:52 | disposition home or self-care (01) ==
PROVIDERS: PCP Internal Medicine; Visit Provider Surgery
PROC: (CPT 19301; principal; 2024-01-05 13:00)
PROC: (CPT 19301; 2024-01-05 13:00)
DX: C50.412 Malignant neoplasm of upper-outer quadrant of left female breast (principal); Z17.0 Estrogen receptor positive status [ER+]; I10 Essential (primary) hypertension; E89.0 Postprocedural hypothyroidism; Z98.890 Other specified postprocedural states; Z56.0 Unemployment, unspecified
CPT/HCPCS: 19301; 38525; 78195; 88305; 88307; 88329; 88341; 88342; A9520; J0690; J1885; J2250; J2405; J2704; J2795; J3010; Q9968

== ENCOUNTER → 2024-01-05 09:47 | Outpatient (BNV) | payer OTHER, SELFPAY | PROVIDERS: PCP Internal Medicine; Visit Provider Surgery | DX: C50.912 Malignant neoplasm of unspecified site of left female breast (principal) | CPT/HCPCS: 19301; 38525; 38900 ==

== ENCOUNTER 2024-01-18 10:07 | Outpatient (AMB) | payer OTHER, SELFPAY ==
--- NOTE | 2024-01-18 10:15 | A.OFFVIS_ITS ---
Intake Visit Reasons: S/P Lt. breast lumpectomy w/localizer & SN bx Intake Note: This patient presents for a post-op assessment status post Left breast lumpectomy w/localizer & SN bx. Patient c/o; reports no complaints pertaining to surgery. 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 breast lumpectomy w/localizer & SN bx: Details: She underwent left breast lumpectomy and sentinel biopsy last 01/05/2024 for invasive ductal cancer. She tolerated procedure well. She currently denies significant complaints. [facility] Medical History Endometrial polyp HTN (hypertension) Invasive ductal carcinoma of left breast Left breast mass Surgical History History of lumpectomy of left breast (~01/05/24) Hx of partial thyroidectomy S/P sclerotherapy of varicose veins Family History Mother No problems noted. Other Leukemia Social History Household Members Other:: , 2 children Housing: House Alcohol intake: never Patient Tobacco Use Status: Never used Tobacco e-Cigarette/Vaping Use: Never Used service: No Current occupational status: unemployed Cognitive needs: No Hearing needs: No Vision needs: No Female Reproductive History Menstrual Age of Menarche: 12 Review of Systems Const Denies chills and Denies fever(s) Card Denies chest pain, Denies dyspnea and Denies dyspnea on exertion Resp Denies cough, Denies dyspnea and Denies dyspnea on exertion GI Denies hematochezia and Denies change in bowel habits Denies hematuria Musc Denies back pain and Denies limited range of motion Neuro Denies focal weakness and Denies convulsions Psych Denies depression and Denies mood swings Physical Exam Const General: comfortable and no acute distress Chest Other: Lumpectomy site is well healed, infected, no hematoma Assessment & Plan Assessment & Plan (1) Invasive ductal carcinoma of left breast: Code(s): C50.912 - Malignant neoplasm of unspecified site of left female breast Category: Medical Plan: Status post lumpectomy and sentinel node biopsy. Her incisions are well healed Her path report shows a T1 N0 ERPR positive, HER2 negative invasive ductal carcinoma. Initial margins were positive but additional margins removed were negative. She is doing very well postoperatively. She will be followed by Dr. Blakely of Oncology and she will require radiation therapy to complete treatment of her left breast. She should continue to have regular mammograms. I will see her again in the office in 1 month for another postop check. Coding Level of Care Code Global (49081) Diagnoses Invasive ductal carcinoma of left breast C50.912
== END 2024-01-18 10:39 | disposition home or self-care (01) ==
PROVIDERS: PCP Internal Medicine; Visit Provider Surgery
DX: C50.912 Malignant neoplasm of unspecified site of left female breast (principal)
CPT/HCPCS: 99024

== ENCOUNTER → 2024-01-18 10:07 | Outpatient (BNVA) | payer OTHER, SELFPAY | PROVIDERS: PCP Internal Medicine; Visit Provider Surgery | DX: C50.912 Malignant neoplasm of unspecified site of left female breast (principal) | CPT/HCPCS: 99212 ==

== ENCOUNTER 2024-01-30 14:58 | Outpatient (AMB) | payer OTHER, SELFPAY ==
[2024-01-30 15:02] VITALS: BP 137/78; PULSE 71; BMI 28.7
--- NOTE | 2024-01-30 15:02 | MHC.OFFVIS ---
Vital Signs 01/30/24 15:02 Height 5 ft 7 in Weight 183 lb BMI 28.7 BP 137/78 Blood Pressure Location Rt brachial Position Sitting Pulse 71 Intake Visit Reasons: Colonoscopy Screening Intake Note: New patient in office today for colonoscopy screening. CC: Patient c/o frequent heartburn, constipation, and abdominal bloating. Patient has never had a colonoscopy done before. Shellfish Processing Machine Tender Required: Yes Shellfish Processing Machine Tender Language: Burundian Shellfish Processing Machine Tender Name: [id number] Accompanied by: Self / Same As Patient Allergies No Known Allergies Allergy (Verified 01/30/24 15:08) HPI HPI Colonoscopy Screening: Details: 53 year old? female here with past medical history of thyroid nodule status post partial thyroidectomy, invasive carcinoma of left breast is today for pre colonoscopy screening.? Patient was sent to us by her PCP.? This is her first colonoscopy screening.? Patient denies any gastrointestinal symptoms in the past or at present.? However patient does admit to be constipated and feeling bloated occasionally. Patient denies any diarrhea. Denies any dyspepsia, dysphagia or odynophagia. Denies melena, hematochezia, unintentional weight loss or ribbon like stools. Denies any personal or family history of gastrointestinal disease, colon polyps, or CRC.? Denies history of difficulty with sedation or anesthesia in the past.? Negative for history of sleep apnea.? Denies any history of cardiac, renal, pulmonary, or hepatic disease.?? No history of infectious? diseases like hepatitis A, B, C, HIV or tuberculosis.? Patient is not on any anticoagulation PFSH Medical History Endometrial polyp HTN (hypertension) Invasive ductal carcinoma of left breast Left breast mass Surgical History History of lumpectomy of left breast (~01/05/24) Hx of partial thyroidectomy S/P sclerotherapy of varicose veins Family History Mother No problems noted. Other Leukemia Social History Household Members Other:: , 2 children Housing: House Alcohol intake: never Patient Tobacco Use Status: Never used Tobacco e-Cigarette/Vaping Use: Never Used service: No Current occupational status: unemployed Cognitive needs: No Hearing needs: No Vision needs: No Female Reproductive History Menstrual Age of Menarche: 12 Review of Systems Const Denies weight gain and Denies weight loss ENT Reports no additional complaints, Denies dysphagia and Denies odynophagia Card Reports no additional complaints Resp Reports no additional complaints GI Denies abdominal pain, Denies belching, Denies melena, Denies bloating, Denies change in bowel habits, Denies dysphagia, Denies excessive flatus, Denies dyspepsia, Denies heartburn, Denies diarrhea, Denies loose stools, Denies nausea, Denies odynophagia and Denies vomiting Reports no additional complaints Musc Reports no additional complaints Neuro Reports no additional complaints Psych Reports no additional complaints Endo Reports no additional complaints Physical Exam Vital Signs: Last Vital Signs Pulse 71 01/30/24 15:02 BP 137/78 01/30/24 15:02 BMI result Body Mass Index 28.7 Const General: healthy appearing, no acute distress and well developed Nutritional Appearance: well nourished Orientation/consciousness: patient oriented x3 Eyes General: appearance normal, both eyes and all related structures Neck Neck: Yes normal visual inspection, Yes full ROM and Yes trachea midline Thyroid: Thyroid normal Resp Effort & Inspection: normal respiratory effort, able to speak in complete sentences, no tracheal deviation and symmetric chest movement Auscultation: clear to auscultation bilaterally Cardio Rate: regular rate GI Inspection: Yes normal to inspection and No distended Palpation (GI): Soft to palpation, not firm, nontender and No hepatosplenomegaly present Auscultation: normal bowel sounds General: Yes no CVA tenderness Back/Spine/Pelvis Back: no CVA tenderness Skin General skin exam: elasticity normal, turgor normal and dry skin Neuro General: patient oriented x3 Psych Appearance: grossly normal Mental Status: mental status grossly normal Assessment & Plan Assessment & Plan (1) Screen for colon cancer: Code(s): Z12.11 - Encounter for screening for malignant neoplasm of colon Plan Patient denies any cardiac or respiratory symptoms.? Denies any issues with anesthesia in the past.? Denies any history of sleep apnea.? No history infectious diseases in the past or present.? Not on any anticoagulation therapy.? No family or personal history of colon cancer or polyps.? Patient denies melena, hematochezia, unintentional weight loss or ribbon like stools.? Patient however does reports to have constipation. No bowel movements on for 2-3 days. Reports to be feeling bloated. Will start her on Senokot. Patient diagnosed with breast cancer and will be going for radiation therapy in the next couple weeks. Patient will beginning radiation therapy at [facility]. Patient states that she will be leaving to go back to [place] in June. Patient will return in 3 months to discuss prep and to make sure that she is moving her bowels well. Patient is agreeable to this plan and verbalizes understanding of instructions. She was given the opportunity to ask questions and all questions answered. Burundian embossing machine tender used Thank you for allowing me participate in her care. Medications: New sennosides (Natural Senna Laxative) 17.2 mg (2 x 8.6 mg) PO BEDTIME 60 tabs 3RF constipation K59.00 - Constipation, unspecified Coding Level of Care Code New Pt Level 3 (01638) Diagnoses Screen for colon cancer Z12.11 Time Spent (min) 40 Comment 30 minutes spent with patient and additional 10 minutes spent reviewing her records
== END 2024-01-30 15:41 | disposition home or self-care (01) ==
PROVIDERS: PCP Internal Medicine; Visit Provider Nurse Practitioner Family
DX: Z12.11 Encounter for screening for malignant neoplasm of colon (principal); Z01.818 Encounter for other preprocedural examination
CPT/HCPCS: 99203

== ENCOUNTER → 2024-01-30 14:58 | Outpatient (BNVA) | payer OTHER, SELFPAY | PROVIDERS: PCP Internal Medicine; Visit Provider Nurse Practitioner Family | DX: Z12.11 Encounter for screening for malignant neoplasm of colon (principal); R14.0 Abdominal distension (gaseous); K59.00 Constipation, unspecified | CPT/HCPCS: 99202 ==

== ENCOUNTER 2024-02-15 13:43 | Outpatient (AMB) | payer OTHER, SELFPAY ==
--- NOTE | 2024-02-15 13:58 | MHC.OFFVIS ---
Intake Visit Reasons: S/P Lt. breast lumpectomy w/localizer & SN bx Intake Note: This patient presents for post-op assessment status post left breast lumpectomy w/localizer and sentinel node biopsy. Patient c/o; reports no complaints. Automatic I Threading Machine Feeder Required: Yes Automatic I Threading Machine Feeder Language: Armenian Automatic I Threading Machine Feeder Name: Ally [id number] Information Interpreted: non-clinical & clinical Accompanied by: Self / Same As Patient Allergies No Known Allergies Allergy (Verified 02/15/24 14:07) HPI HPI S/P Lt. breast lumpectomy w/localizer & SN bx: Details: She underwent left breast lumpectomy and sentinel biopsy last 01/05/2024 for invasive ductal cancer. She tolerated procedure well. She currently denies significant complaints. She says she feels well overall. She continues to see Dr. Blakely of Oncology and has been started on hormonal treatment. She is to see the radiation oncologist next week as well to complete treatment. [facility] Medical History Endometrial polyp HTN (hypertension) Invasive ductal carcinoma of left breast Left breast mass Surgical History History of lumpectomy of left breast (~01/05/24) Hx of partial thyroidectomy S/P sclerotherapy of varicose veins Family History Mother No problems noted. Other Leukemia Social History Household Members Other:: , 2 children Housing: House Alcohol intake: never Patient Tobacco Use Status: Never used Tobacco e-Cigarette/Vaping Use: Never Used service: No Current occupational status: unemployed Cognitive needs: No Hearing needs: No Vision needs: No Female Reproductive History Menstrual Age of Menarche: 12 Review of Systems Const Denies chills and Denies fever(s) Card Denies chest pain, Denies dyspnea and Denies dyspnea on exertion Resp Denies cough, Denies dyspnea and Denies dyspnea on exertion GI Denies hematochezia and Denies change in bowel habits Denies hematuria Musc Denies back pain and Denies limited range of motion Neuro Denies focal weakness and Denies convulsions Psych Denies depression and Denies mood swings Physical Exam Const General: comfortable and no acute distress Chest Other: Surgical site well healed, some deformity from removal of breast tissue on the area Resp Effort & Inspection: normal respiratory effort Assessment & Plan Assessment & Plan (1) Invasive ductal carcinoma of left breast: Code(s): C50.912 - Malignant neoplasm of unspecified site of left female breast Category: Medical Plan: Status post lumpectomy. She is doing well and the surgical site is well healed. She is to start radiation treatment next week. She has been started on tamoxifen for her ERPR positive tumor. She is continued to see Dr. Blakely as well I will see her again in the office in about 6 months. The visit was done in the presence of a intermediate manager. Coding Level of Care Code Global (08711) Diagnoses Invasive ductal carcinoma of left breast C50.912
== END 2024-02-15 14:30 | disposition home or self-care (01) ==
PROVIDERS: PCP Internal Medicine; Visit Provider Surgery
DX: C50.912 Malignant neoplasm of unspecified site of left female breast (principal)
CPT/HCPCS: 99024

== ENCOUNTER → 2024-02-15 13:43 | Outpatient (BNVA) | payer OTHER, SELFPAY | PROVIDERS: PCP Internal Medicine; Visit Provider Surgery | DX: C50.912 Malignant neoplasm of unspecified site of left female breast (principal); Z17.0 Estrogen receptor positive status [ER+] | CPT/HCPCS: 99212 ==

== ENCOUNTER 2024-03-06 10:46 | Outpatient (AMB) | payer OTHER, SELFPAY ==
--- NOTE | 2024-03-06 11:32 | A.OFFVIS_ITS ---
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, Uterine Prolapse/DO NOT RS Estimating Engineer Required: Yes Estimating Engineer Language: Nepalese Estimating Engineer Services: Estimating Engineer Present Estimating Engineer Name: Yun([id number]) Allergies No Known Allergies Allergy (Verified 03/06/24 11:34) HPI Comments Details: Presenting complaining of bulge per vagina over the last few years with no associated urinary incontinence frequency or constipation PFSH Medical History Endometrial polyp HTN (hypertension) Invasive ductal carcinoma of left breast Left breast mass Surgical History History of lumpectomy of left breast (~01/05/24) Hx of partial thyroidectomy S/P sclerotherapy of varicose veins Family History Mother No problems noted. Other Leukemia Social History Household Members Other:: , 2 children Housing: House Alcohol intake: never Patient Tobacco Use Status: Never used Tobacco e-Cigarette/Vaping Use: Never Used service: No Current occupational status: unemployed Cognitive needs: No Hearing needs: No Vision needs: No Female Reproductive History Menstrual Age of Menarche: 12 Review of Systems Const All systems reviewed & are unremarkable except as noted in HPI and below Physical Exam Vital Signs: Last Vital Signs BP 122/68 03/06/24 11:33 General: Yes no CVA tenderness External Female Exam: normal external appearance and normal appearance of the urethra Speculum Exam - Vagina: normal appearance of the vagina, normal palpation, no lesions, no masses and other (Cystocele Moderate central and bilateral paravaginal defects) Speculum Exam - Cervix: normal appearance of the cervix, normal palpation, no lesions, no masses and nontender Bimanual exam- vagina & uterus: normal bimanual exam, normal palpation, uterine size normal, normal palpation, uterine shape normal, No Cervical tenderness present, non-tender and other (Mild uterine prolapse) Bimanual Exam- Adnexa, other: normal adnexae Back/Spine/Pelvis Back: no CVA tenderness Assessment & Plan Assessment & Plan (1) Cystocele with uterine prolapse: Comment: Moderate Central and bilateral paravaginal defectd Mild uterine prolapse Code(s): N81.4 - Uterovaginal prolapse, unspecified Category: Medical Plan: Discussed with the patient the finding on pelvic exam showing moderate central and bilateral paravaginal defects with mild uterine prolapse, options of treatment discussed with the patient included expectant management, pessary or surgical management. All pros and cons, risks and benefits of each were discussed with the patient, the patient decided to proceed with surgical management, will refer to Urogynecology. Instructed the patient to call our office back in case a referral appointment is not scheduled, missed or canceled so that we will assist on rescheduling another appointment, the patient verbalized understanding agreed with the plan. Orders: Referrals Urogynecology Referral N81.4 - Uterovaginal prolapse, unspecified Coding Level of Care Code New Pt Level 3 (23193) Diagnoses Cystocele with uterine prolapse N81.4
[2024-03-06 11:33] VITALS: BP 122/68
== END 2024-03-06 11:51 | disposition home or self-care (01) ==
LOC: HO.HWS 10:46
PROVIDERS: PCP Internal Medicine; Visit Provider Obstetrics & Gynecology
DX: N81.4 Uterovaginal prolapse, unspecified (principal)
CPT/HCPCS: 99203

== ENCOUNTER → 2024-03-06 10:46 | Outpatient (BNVA) | payer OTHER, SELFPAY | PROVIDERS: PCP Internal Medicine; Visit Provider Obstetrics & Gynecology | DX: N81.4 Uterovaginal prolapse, unspecified (principal) | CPT/HCPCS: 99202 ==

== ENCOUNTER 2024-05-01 08:43 | Outpatient (AMB) | payer OTHER, SELFPAY ==
--- NOTE | 2024-05-01 08:44 | MHC.OFFVIS ---
Vital Signs 05/01/24 08:48 Height 5 ft 7 in Weight 180 lb 12.465 oz BMI 28.3 BP 111/53 L Blood Pressure Location Lt brachial Position Sitting Pulse 63 Intake Visit Reasons: Follow up 3 months Intake Note: Tiffany presents in the office as a 3 month follow up. CC: She states she was sick and taking Tongan medications. She is not having any pains in the stomach but she has heartburn and constipation from time to time. She stopped taking the senna - it was not working for her she stopped after one month. Fish Hatchery Man Required: Yes Fish Hatchery Man Name: [id number] Eugenie Allergies No Known Allergies Allergy (Verified 05/01/24 08:51) HPI HPI Follow up 3 months: Details: LAST VISIT Screen for colon cancer Plan Patient denies any cardiac or respiratory symptoms.? Denies any issues with anesthesia in the past.? Denies any history of sleep apnea.? No history infectious diseases in the past or present.? Not on any anticoagulation therapy.? No family or personal history of colon cancer or polyps.? Patient denies melena, hematochezia, unintentional weight loss or ribbon like stools.? Patient however does reports to have constipation. No bowel movements on for 2-3 days. Reports to be feeling bloated. Will start her on Senokot. Patient diagnosed with breast cancer and will be going for radiation therapy in the next couple weeks. Patient will beginning radiation therapy at [facility]. Patient states that she will be leaving to go back to [facility] in June. Patient will return in 3 months to discuss prep and to make sure that she is moving her bowels well. Patient is agreeable to this plan and verbalizes understanding of instructions. She was given the opportunity to ask questions and all questions answered. Tongan stunner animal used ? Thank you for allowing me participate in her care. Medications New sennosides (Natural Senna Laxative) 17.2 mg (2 x 8.6 mg) PO BEDTIME 60 tabs 3RF constipation K59.00 TODAY'S VISIT Patient is here today for follow-up and to discuss colonoscopy prep. Patient reports that she ran out of her Senokot. States that medication was working for her. Patient denies melena, hematochezia. Denies any issues with anesthesia in the past did no history of sleep apnea. Not on any anticoagulation medication. Colonoscopy scheduled for July 12. Patient denies any other GI concerning symptoms. [facility] Medical History Endometrial polyp HTN (hypertension) Invasive ductal carcinoma of left breast Left breast mass Surgical History History of lumpectomy of left breast (~01/05/24) Hx of partial thyroidectomy S/P sclerotherapy of varicose veins Family History Mother No problems noted. Other Leukemia Social History Household Members Other:: , 2 children Housing: House Alcohol intake: never Patient Tobacco Use Status: Never used Tobacco e-Cigarette/Vaping Use: Never Used service: No Current occupational status: unemployed Cognitive needs: No Hearing needs: No Vision needs: No Female Reproductive History Menstrual Age of Menarche: 12 Review of Systems Const Denies weight gain and Denies weight loss ENT Reports no additional complaints, Denies dysphagia and Denies odynophagia Card Reports no additional complaints Resp Reports no additional complaints GI Denies abdominal pain, Denies belching, Denies melena, Denies bloating, Denies change in bowel habits, Denies dysphagia, Denies excessive flatus, Denies dyspepsia, Denies heartburn, Denies diarrhea, Denies loose stools, Denies nausea, Denies odynophagia and Denies vomiting Reports no additional complaints Musc Reports no additional complaints Neuro Reports no additional complaints Psych Reports no additional complaints Endo Reports no additional complaints Physical Exam Vital Signs: Last Vital Signs Pulse 63 05/01/24 08:48 BP 111/53 L 05/01/24 08:48 BMI result Body Mass Index 28.3 Const General: healthy appearing, no acute distress and well developed Nutritional Appearance: well nourished Orientation/consciousness: patient oriented x3 Eyes General: appearance normal, both eyes and all related structures Neck Neck: Yes normal visual inspection, Yes full ROM and Yes trachea midline Thyroid: Thyroid normal Resp Effort & Inspection: normal respiratory effort, able to speak in complete sentences, no tracheal deviation and symmetric chest movement Auscultation: clear to auscultation bilaterally Cardio Rate: regular rate GI Inspection: Yes normal to inspection and No distended Palpation (GI): Soft to palpation, not firm, nontender and No hepatosplenomegaly present Auscultation: normal bowel sounds General: Yes no CVA tenderness Back/Spine/Pelvis Back: no CVA tenderness Skin General skin exam: elasticity normal, turgor normal and dry skin Neuro General: patient oriented x3 Psych Appearance: grossly normal Mental Status: mental status grossly normal Assessment & Plan Assessment & Plan (1) Screen for colon cancer: Code(s): Z12.11 - Encounter for screening for malignant neoplasm of colon (2) Constipation: Code(s): K59.00 - Constipation, unspecified Qualifiers: Constipation type: slow transit constipation Qualified Code(s): K59.01 - Slow transit constipation Plan Continue Senokot daily. Increase fluid intake and activity to promote better bowel motility. What to expect before during and after procedure discussed with patient stressed the importance of clear liquid diet and good bowel prep day before procedure. I will see patient after the procedure, sooner on as needed basis. She is agreeable to this plan and verbalizes understanding of instructions. She was given the opportunity to ask questions and all questions answered. Thank you for allowing me to participate in her care Medications: New bisacodyl (Dulcolax (bisacodyl)) take 4 tabs at noon the day before your colonoscopy 20 mg (4 x 5 mg) PO ONCE 1 day 4 tabs 0RF Z12.11 - Encounter for screening for malignant neoplasm of colon polyethylene glycol 3350 (Miralax) As directed by gastroenterology department at [facility] 238 grams PO ONCE 238 grams 0RF Z12.11 - Encounter for screening for malignant neoplasm of colon Refilled sennosides (Natural Senna Laxative) 17.2 mg (2 x 8.6 mg) PO BEDTIME 180 tabs 3RF constipation K59.00 - Constipation, unspecified Coding Level of Care Code Est Pt Level 3 (82574) Diagnoses Screen for colon cancer Z12.11 Slow transit constipation K59.01 Constipation type: slow transit constipation Time Spent (min) 30 Comment 20 minutes spent with patient and additional 10 minutes spent reviewing her records
[2024-05-01 08:48] VITALS: BP 111/53; PULSE 63; BMI 28.3
== END 2024-05-01 09:15 | disposition home or self-care (01) ==
PROVIDERS: PCP Internal Medicine; Visit Provider Nurse Practitioner Family
DX: Z12.11 Encounter for screening for malignant neoplasm of colon (principal); K59.01 Slow transit constipation; Z01.818 Encounter for other preprocedural examination
CPT/HCPCS: 99213

== ENCOUNTER → 2024-05-01 08:43 | Outpatient (BNVA) | payer OTHER, SELFPAY | PROVIDERS: PCP Internal Medicine; Visit Provider Nurse Practitioner Family | DX: Z12.11 Encounter for screening for malignant neoplasm of colon (principal); K59.01 Slow transit constipation | CPT/HCPCS: 99212 ==

== ENCOUNTER 2024-07-12 06:56 | Day surgery (SDC) | payer OTHER, SELFPAY ==
[2024-07-09 14:44] VITALS: BMI 28.3
--- NOTE | 2024-07-11 09:18 | HO.ANESPROP2 ---
Documented by User: Kiersten Seaman NP 07/11/24 09:20 HPI - Anesthesia Eval Consult details Narrative: 54yo F for Colonoscopy s/p lumptectomy 12/2023 with GA-LMA 3 PMFSH Active Problems Active Problems: All Active Problems Cystocele with uterine prolapse (Acute) Left breast mass (Acute) Varicose veins of both lower extremities (Acute) Normal pelvic exam (Acute) Hx of partial thyroidectomy (Acute) Thyroid nodule (Acute) Annual physical exam (Acute) Invasive ductal carcinoma of left breast (Acute) Past Medical History Medical History Endometrial polyp HTN (hypertension) Invasive ductal carcinoma of left breast Family History Family History Mother No problems noted. Other Leukemia Family history of problems with anesthesia: No Surgical History Surgical History History of gynecologic surgery History of lumpectomy of left breast (~01/05/24) Hx of partial thyroidectomy S/P sclerotherapy of varicose veins Social History Social History Household Members Other:: , 2 children Housing: House Alcohol intake: never Patient Tobacco Use Status: Never used Tobacco e-Cigarette/Vaping Use: Never Used Use of substances other than those prescribed or required for medical reasons: No Have you been hit, kicked, punched, or otherwise hurt by someone within the past year? If so, by whom?: No Are you DNR?: No Advance Directives: No Advance Directives Information Provided: Yes Recently lost weight without trying: No service: No Current occupational status: unemployed Cognitive needs: No Hearing needs: No Vision needs: No Meds Allergies Allergy/AdvReac Type Severity Reaction Status Date / Time No Known Allergies Allergy Verified 05/25/24 10:46 Home Medications ?Medication ?Instructions ?Recorded ?Confirmed ?Last Taken ?Type tamoxifen 20 mg tablet 20 mg PO DAILY 05/01/24 07/09/24 Unknown History Exam Height,Weight and Vital Signs: Height 5 ft 7 in Weight 82.1 kg Pertinent Lab Results Pertinent Lab Results: Laboratory Tests 05/25/24 11:44 WBC 5.6 Hgb 12.9 Hct 37.5 Plt Count 273 Sodium 141 Potassium 4.0 Chloride 109 H Carbon Dioxide 23 BUN 12 Creatinine 0.81 Assessment and Plan Assessment Anesthesia Assessment: Chart Reviewed Final Anesthetic Review Family History of Problems with Anesthesia: No Documented by User: Khushboo Estrada MD 07/12/24 08:14 PMFSH Past Medical History Medical History Endometrial polyp HTN (hypertension) Invasive ductal carcinoma of left breast Family History Family History Mother No problems noted. Other Leukemia Surgical History Surgical History History of gynecologic surgery History of lumpectomy of left breast (~01/05/24) Hx of partial thyroidectomy S/P sclerotherapy of varicose veins History of Problems with Anesthesia: Yes Social History Social History Household Members Other:: , 2 children Housing: House Alcohol intake: never Patient Tobacco Use Status: Never used Tobacco e-Cigarette/Vaping Use: Never Used Use of substances other than those prescribed or required for medical reasons: No Have you been hit, kicked, punched, or otherwise hurt by someone within the past year? If so, by whom?: No Are you DNR?: No Advance Directives: No Advance Directives Information Provided: Yes Recently lost weight without trying: No service: No Current occupational status: unemployed Cognitive needs: No Hearing needs: No Vision needs: No Meds Allergies Allergy/AdvReac Type Severity Reaction Status Date / Time No Known Allergies Allergy Verified 05/25/24 10:46 Home Medications ?Medication ?Instructions ?Recorded ?Confirmed ?Last Taken ?Type tamoxifen 20 mg tablet 20 mg PO DAILY 05/01/24 07/09/24 Unknown History Exam Airway Mallampati Class: II TM Dist: >3cm Neck ROM: Full Heart: rrr Lungs: cta Assessment and Plan Assessment Anesthesia Assessment: Anesthesia Plan Discussed Final Anesthetic Review History of Problems with Anesthesia: Yes NPO: Yes ASA Class: III Final Preanesthetic Review: No Changes in Pt Med Stat, Meds/Allgs Chart Reviewed, Consent Obtained/Reviewed and Anes Risks/Benef Reviewed Patient Risk: Intermediate Procedure Risk: Low Anesthetic Plan Anesthetic Plan: MAC: Disposition: Standard PACU
[2024-07-12 07:16] VITALS: BP 135/72; PULSE 65; RESP 16; TEMP 36.9; O2SAT 100
[2024-07-12] MEDS: Lactated Ringers 1,000 ML 100 ML IVCONT (07:24)
--- NOTE | 2024-07-12 07:50 | MHC.SHP ---
Pre-Procedural Eval Section A - 24 Hr Update-Section A only Date of Service: 07/12/24 Section B - Complete if H&P > 30 days Chief Complaint: Encounter for screening for malignant neoplasm of Details of Present Illness: Endometrial polyp HTN (hypertension) Invasive ductal carcinoma of left breast Left breast mass Surgical History History of lumpectomy of left breast (~01/05/24) Hx of partial thyroidectomy S/P sclerotherapy of varicose veins Allergies: Allergies Allergy/AdvReac Type Severity Reaction Status Date / Time No Known Allergies Allergy Verified 05/25/24 10:46 Review of Systems Review of Systems Comment: 10 Point ROS negative Exam Exam Comment: Gen appear: No acute distress HEENT: no icterus Chest: No overt resp distress Abd: soft, nontender, nondistended Psych: Stable affect, answering questions appropriately Neuro: A/Ox3 noted to move all extremities spontaneously Ext: no peripheral edema Plan Diagnosis/Plan: Unchanged I have reviewed the history and physical and performed a pertinent physical examination on my patient. No changes have occurred unless specified. Time Spent With Patient Time: Total time managing care of this patient today ____ minutes.
[2024-07-12 08:26] VITALS: BP 90/48; PULSE 54; RESP 16; TEMP 36.4; O2SAT 97
--- NOTE | 2024-07-12 08:37 | HO.OPN-COLON ---
Colonoscopy Operative Note Operative Note Date of Service: 07/12/24 Narrative: Procedure: Colonoscopy Indication: Screening Endoscopist: Sophia Ivan MD Anesthesia Provider: Rachel Portillo CRNA Anesthesia type: MAC Instrument: Olympus [id number] Consent: Indication, risks vs benefits, and alternatives were discussed with the patient who gave written informed consent to proceed. An internet project manager was utilized to assist with the consent. EKG, pulse, pulse oximetry and blood pressure were monitored throughout the procedure. Please see anesthesia flowsheet. Procedure: The patient was brought to the procedure room and placed in the left lateral decubitus position. IV medications were administered by the anesthesia provider in attendance. A digital rectal exam was performed which was normal. A distal attachment cap was affixed to the tip of the colonoscope which was then inserted through the anus and advanced through the colon to the cecum at 75 cm,and terminal ileum. Appendiceal orifice and ileocecal valve were identified. Mucosa was carefully examined under high definition white light as the instrument was slowly withdrawn in a retrograde panoramic fashion. Retroflexion was performed in rectum. The procedure was not difficult. There were no immediate obvious complications. The quality of the prep was BBPS: 2+2+3 = adequate Withdrawal time 10 minutes. Limitations: No limitations. Findings: Mucosa: Normal to cecum and terminal ileum. Protruding lesions: 1 semi-pedunculated polyp of size 8 mm in rectum. Hot snare polypectomy was performed. The polyp was completely removed and retrieved. Medium internal hemorrhoids without stigmata of recent bleeding. Impression: 1. Normal colon and terminal ileum mucosa 2. Total of 1 polyp removed 3. Internal hemorrhoids Recommendations: - Follow path results. - Repeat colonoscopy in 3 years if this is a villous adenoma, otherwise 5 years.
[2024-07-12 08:41] VITALS: BP 101/59; PULSE 56; RESP 16; TEMP 36.5; O2SAT 96
== END 2024-07-12 09:37 | disposition home or self-care (01) ==
PROVIDERS: PCP Neurological Surgery; Visit Provider Internal Medicine
PROC: 0DJD8ZZ Inspection of Lower Intestinal Tract, Via Natural or Artificial Opening Endoscopic (ICD-10-PCS; CPT 45378; principal; 2024-07-12 08:20)
DX: Z12.11 Encounter for screening for malignant neoplasm of colon (principal); D12.8 Benign neoplasm of rectum; K64.8 Other hemorrhoids; I10 Essential (primary) hypertension; C50.912 Malignant neoplasm of unspecified site of left female breast
CPT/HCPCS: 45385; 88305; J2003; J2704

== ENCOUNTER → 2024-07-12 06:56 | Outpatient (BNV) | payer OTHER, SELFPAY | PROVIDERS: PCP Neurological Surgery; Visit Provider Internal Medicine | DX: Z12.11 Encounter for screening for malignant neoplasm of colon (principal); D12.8 Benign neoplasm of rectum; K64.8 Other hemorrhoids | CPT/HCPCS: 45385 ==

== ENCOUNTER 2024-07-30 12:53 | Outpatient (AMB) | payer OTHER, SELFPAY ==
[2024-07-30 13:09] VITALS: BP 131/73; PULSE 66; BMI 25.7
--- NOTE | 2024-07-30 13:09 | A.OFFVIS_ITS ---
Vital Signs 07/30/24 13:09 Height 5 ft 7 in Weight 164 lb 0.383 oz BMI 25.7 BP 131/73 Blood Pressure Location Lt brachial Position Sitting Pulse 66 Intake Visit Reasons: s/p colon Intake Note: Tiffany presents in office today in follow up s/p colonoscopy. CC: Patient c/o constipation. Denies other GI symptoms. Incubator Machine Operator Required: Yes Incubator Machine Operator Language: [place] Timorese Incubator Machine Operator Name: Delfina [id number] Accompanied by: Self / Same As Patient Allergies No Known Allergies Allergy (Verified 07/30/24 13:15) HPI HPI s/p colon: Details: LAST VISIT: Screen for colon cancer Constipation Plan Continue Senokot daily. Increase fluid intake and activity to promote better bowel motility. What to expect before during and after procedure discussed with patient stressed the importance of clear liquid diet and good bowel prep day before procedure. I will see patient after the procedure, sooner on as needed basis. She is agreeable to this plan and verbalizes understanding of instructions. She was given the opportunity to ask questions and all questions answered. ? Thank you for allowing me to participate in her care Medications New bisacodyl (Dulcolax (bisacodyl)) take 4 tabs at noon the day before your colonoscopy 20 mg (4 x 5 mg) PO ONCE 1 day 4 tabs 0RF Z12.11 polyethylene glycol 3350 (Miralax) As directed by gastroenterology department at [facility] 238 grams PO ONCE 238 grams 0RF Z12.11 Refilled sennosides (Natural Senna Laxative) 17.2 mg (2 x 8.6 mg) PO BEDTIME 180 tabs 3RF constipation K59.00 COLONOSCOPY: Findings: Mucosa: Normal to cecum and terminal ileum. Protruding lesions: * 1 semi-pedunculated polyp of size 8 mm in rectum. Hot snare polypectomy was performed. The polyp was completely removed and retrieved. * Medium internal hemorrhoids without stigmata of recent bleeding. Impression: 1. Normal colon and terminal ileum mucosa 2. Total of 1 polyp removed 3. Internal hemorrhoids Recommendations: - Follow path results. - Repeat colonoscopy in 3 years if this is a villous adenoma, otherwise 5 years. PATHOLOGY: Diagnosis Colon, rectal polyp: Tubular adenoma; negative for high-grade dysplasia and carcinoma TODAY'S VISIT: Patient is here today for follow-up and to discuss colonoscopy results. Patient denies any ill effects from the prep, anesthesia or procedure itself. Patient reports that she has been doing well except for she still is constipated. Patient is taking senna, however she feels like it is not helping as much as she would like. Patient denies any melena, hematochezia. One tubular adenoma found, negative for high-grade dysplasia or carcinoma. Recommendation was made for 5 year screening. Patient denies any nausea or vomiting. Occasional postprandial abdominal bloating, patient believes that it is related as she is not emptying her bowels completely. Denies any other GI concerning symptoms. [facility] Medical History Endometrial polyp HTN (hypertension) Invasive ductal carcinoma of left breast Surgical History History of gynecologic surgery History of lumpectomy of left breast (~01/05/24) Hx of partial thyroidectomy S/P sclerotherapy of varicose veins Family History Mother No problems noted. Other Leukemia Social History Household Members Other:: , 2 children Housing: House Alcohol intake: never Patient Tobacco Use Status: Never used Tobacco e-Cigarette/Vaping Use: Never Used service: No Current occupational status: unemployed Cognitive needs: No Hearing needs: No Vision needs: No Female Reproductive History Menstrual Age of Menarche: 12 Review of Systems Const Denies weight gain and Denies weight loss ENT Reports no additional complaints, Denies dysphagia and Denies odynophagia Card Reports no additional complaints Resp Reports no additional complaints GI Denies abdominal pain, Denies belching, Denies melena, Denies bloating, Reports constipation, Denies dysphagia, Denies excessive flatus, Denies dyspepsia, Denies heartburn, Denies diarrhea, Denies loose stools, Denies nausea, Denies odynophagia and Denies vomiting Musc Reports no additional complaints Neuro Reports no additional complaints Psych Reports no additional complaints Endo Reports no additional complaints Physical Exam Vital Signs: Last Vital Signs Pulse 66 07/30/24 13:09 BP 131/73 07/30/24 13:09 BMI result Body Mass Index 25.7 Const General: healthy appearing, no acute distress and well developed Nutritional Appearance: well nourished Orientation/consciousness: patient oriented x3 Eyes General: appearance normal, both eyes and all related structures Neck Neck: Yes normal visual inspection, Yes full ROM and Yes trachea midline Thyroid: Thyroid normal Resp Effort & Inspection: normal respiratory effort, able to speak in complete sentences, no tracheal deviation and symmetric chest movement Auscultation: clear to auscultation bilaterally Cardio Rate: regular rate GI Inspection: Yes normal to inspection and No distended Palpation (GI): Soft to palpation, not firm, nontender and No hepatosplenomegaly present Auscultation: normal bowel sounds General: Yes no CVA tenderness Back/Spine/Pelvis Back: no CVA tenderness Skin General skin exam: elasticity normal, turgor normal and dry skin Neuro General: patient oriented x3 Psych Appearance: grossly normal Mental Status: mental status grossly normal Assessment & Plan Assessment & Plan (1) Constipation: Code(s): K59.00 - Constipation, unspecified Qualifiers: Constipation type: slow transit constipation Qualified Code(s): K59.01 - Slow transit constipation (2) Status post colonoscopy: Code(s): Z98.890 - Other specified postprocedural states Plan Colonoscopy repeat in 5 years. Stop senna and start Dulcolax. Patient will be having surgery and will be most likely on pain medication that would cause worsening in her constipation. Script for stool softeners given to patient. Increase fluid intake and activity to promote better bowel motility. Patient was also encouraged to take fiber supplement with probiotics. Follow-up in the office in 3 months, sooner on as needed basis. She is agreeable to this plan and verbalizes understanding of instructions. She was given the opportunity to ask questions and all questions answered. Medications: New bisacodyl (Dulcolax (bisacodyl)) 10 mg (2 x 5 mg) PO BEDTIME 60 tabs 4RF docusate sodium 100 mg PO BEDTIME 90 caps 3RF K59.00 - Constipation, unspecified Discontinued sennosides Discontinued Reason: Doctor's Order 17.2 mg (2 x 8.6 mg) PO BEDTIME 180 tabs 3RF constipation K59.00 - Constipation, unspecified Coding Level of Care Code Est Pt Level 3 (99290) Diagnoses Slow transit constipation K59.01 Constipation type: slow transit constipation Status post colonoscopy Z98.890 Time Spent (min) 30 Comment 20 minutes spent with patient and additional 10 minutes spent reviewing her records
== END 2024-07-30 13:38 | disposition home or self-care (01) ==
PROVIDERS: PCP Internal Medicine; Visit Provider Nurse Practitioner Family
DX: K59.01 Slow transit constipation (principal); Z98.890 Other specified postprocedural states
CPT/HCPCS: 99213

== ENCOUNTER → 2024-07-30 12:53 | Outpatient (BNVA) | payer OTHER, SELFPAY | PROVIDERS: PCP Internal Medicine; Visit Provider Nurse Practitioner Family | DX: K59.01 Slow transit constipation (principal); Z98.890 Other specified postprocedural states | CPT/HCPCS: 99212 ==

== ENCOUNTER 2024-08-24 12:15 | Outpatient (AMB) | payer OTHER, SELFPAY ==
[2024-08-24 12:38] VITALS: BP 120/78; PULSE 73; O2SAT 98; BMI 27.1
--- NOTE | 2024-08-24 12:38 | A.OFFPC_ITS ---
Vital Signs 08/24/24 12:38 Height 5 ft 7 in Weight 173 lb 2 oz BMI 27.1 BP 120/78 Blood Pressure Location Lt brachial Position Sitting Pulse 73 Pulse Source Pulse Oximeter Pulse Oximetry (%) 98 Oxygen Delivery Method Room Air Intake Visit Reasons: Coughing, rhinorrhea Intake Note: Pt is here today for a [facility] visit. Pt c/o fever and cough. Allergies No Known Allergies Allergy (Verified 07/30/24 13:15) Medication List - Last Reconciled 08/24/24 by Arlette Humphrey MD bisacodyl (Dulcolax (bisacodyl)) 10 mg (2 x 5 mg) PO BEDTIME calcium carbonate (Calcium 600) 600 mg PO DAILY cholecalciferol (vitamin D3) 50 mcg PO DAILY docusate sodium 100 mg PO BEDTIME magnesium oxide 400 mg PO DAILY tamoxifen 20 mg PO DAILY Tobacco use date assessed: 08/24/24 Dental Screening Dental Screen Date: 08/24/24 Did you have a dental visit in the last 12 months?: Yes Did you have a dental problem in the last 6 months where you did not have access to dental care?: No Was dental information given to patient?: Patient has dentist HPI Coughing, rhinorrhea HPI Details Patient presents with complaint of fever chills cough sore throat and congestion for 1 week getting better over last few days. She underwent total hysterectomy and oophorectomy last week for a uterine prolapse. Patient is established with oncology for breast cancer treatment. She has been taking tamoxifen. [facility] Medical History (Updated 08/24/24 @ 13:11 by Arlette Humphrey MD) Endometrial polyp HTN (hypertension) Invasive ductal carcinoma of left breast Surgical History (Updated 08/24/24 @ 13:11 by Arlette Humphrey MD) History of gynecologic surgery History of lumpectomy of left breast (~01/05/24) Hx of partial thyroidectomy S/P sclerotherapy of varicose veins Family History Mother No problems noted. Other Leukemia Social History Household Members Other:: , 2 children Housing: House Alcohol intake: never Patient Tobacco Use Status: Never used Tobacco e-Cigarette/Vaping Use: Never Used service: No Current occupational status: unemployed Cognitive needs: No Hearing needs: No Vision needs: No Female Reproductive History Menstrual Age of Menarche: 12 Questionnaire PHQ-9 Over the last 2 weeks, how often have you been bothered by any of the following problems? 1. Little interest or pleasure in doing things: not at all 2. Feeling down, depressed, or hopeless: not at all 3. Trouble falling or staying asleep, or sleeping too much: not at all 4. Feeling tired or having little energy: not at all 5. Poor appetite or overeating: not at all 6. Feeling bad about yourself - or that you are a failure or have let yourself or your family down: not at all 7. Trouble concentrating on things, such as reading the newspaper or watching television: not at all 8. Moving or speaking so slowly that other people could have noticed. Or the opposite - being so fidgety or restless that you have been moving around a lot more than usual: not at all 9. Thoughts that you would be better off or of hurting yourself in some way: not at all Total score: 0 Depression Screening Interpretation: Negative Depression Screening Done: Yes 39959 - PHQ-9 Billing: Yes Source: Developed by Drs. Onur Mane, Jaqui Jean-Baptiste, Jordin Romero and colleagues, with an educational hamlet from [employer]. Thrive Questionnaire Date Thrive assessed: 08/24/24 I am a: Patient What is your living situation today?: I have a steady place to live Within the past 12 months, did the food you bought not last and you didn't have the money to get more?: Never true Within the past 12 months, did you worry whether your food would run out before you got money to buy more?: Never true Do you have trouble paying for medicines?: No Do you have trouble getting transportation to medical appointments?: No Do you have trouble paying your heating and electricity bill?: No Do you have trouble taking care of your child, family member or friend?: No Do you have trouble with day-to-day activities such as bathing, preparing meals, shopping, managing finances, etc.?: No Are you currently unemployed and looking for a job?: No Are you interested in more education?: No Please select the resources that you would like help with: None THRIVE Score: 0 AUDIT C Alcohol Use Questionnaire (AUDIT-C) 1. How often do you have a drink containing alcohol?: Never 3. How often do you have six or more drinks on one occasion?: Never Total Score: 0 ALICIA-7 AMB Questionnaire ALICIA-7 Date ALICIA - 7 assessed: 08/24/24 Feeling nervous, anxious, or on edge: 0 = Not at all Not being able to stop or control worryin = Not at all Worrying too much about different things: 0 = Not at all Trouble relaxin = Not at all Being so restless that it is hard to sit still: 0 = Not at all Becoming easily annoyed or irritable: 0 = Not at all Feeling afraid as if something awful might happen: 0 = Not at all Total ALICIA-7 score (0-4 normal; 5-9 mild; 10-14 moderate; 15-21 severe): 0 Source: Developed by Drs. Onur Mane, Jaqui Jean-Baptiste, Jordin Romero and colleagues, with an educational hamlet from [employer]. ALICIA-7 Assessment Billing ALICIA-7 Assessment Tool: ALICIA-7 Assessment 88772 Review of Systems Const All systems reviewed & are unremarkable except as noted in HPI and below Eyes Reports no additional complaints Card Reports no additional complaints Resp Reports no additional complaints GI Reports no additional complaints Reports no additional complaints Physical exam (Primary Care) Vital Signs: Last Vital Signs Pulse 73 08/24/24 12:38 BP 120/78 08/24/24 12:38 Pulse Ox 98 08/24/24 12:38 Oxygen Delivery Method Room Air 08/24/24 12:38 BMI result Body Mass Index 27.1 Tobacco/Smoking Status: Tobacco use Status Tobacco use date assessed 08/24/24 08/24/24 12:43 Patient Tobacco Use Status Never used Tobacco 08/24/24 12:39 e-Cigarette/Vaping Use Never Used 08/24/24 12:39 PHQ-9: PHQ-9 Score PHQ-9: Total score 0 08/24/24 12:43 Depression Screening Interpretation: Negative Thrive Assessment: Date of Thrive Assessment Date Thrive assessed 08/24/24 08/24/24 12:43 Const General: no acute distress HENMT Head: Yes normal to inspection Mouth: Normal oral and palatal mucosa present Neck Neck: Yes supple Resp Effort & Inspection: normal respiratory effort Auscultation: clear to auscultation bilaterally Cardio Rhythm: regular rhythm Heart sounds: S1 normal heart sound present and S2 normal heart sound present Coding Level of Care Code Est Pt Level 4 (86415) Diagnoses Cystocele with uterine prolapse N81.4 Invasive ductal carcinoma of left breast C50.912 Colon polyp K63.5 Additional Codes ALICIA-7 Assessment Billing - ALICIA-7 Assessment Tool: ALICIA-7 Assessment 22643 ([id number]) PHQ-9 - 50858 - PHQ-9 Billing: Yes ([id number]) Assessment & Plan Assessment & Plan (1) Cystocele with uterine prolapse: Comment: Moderate Central and bilateral paravaginal defect, Mild uterine prolapse, S/P hysterectomy and oophorectomy 08/2024 [facility] Code(s): N81.4 - Uterovaginal prolapse, unspecified Category: Medical Plan: f/u with fuse spooler (2) Invasive ductal carcinoma of left breast: Comment: w/lumpectomy 01/05/24, RTx at [facility], on Tamoxifen, f/u Dr. Blakely Code(s): C50.912 - Malignant neoplasm of unspecified site of left female breast Category: Medical Plan: f/u with oncology (3) Colon polyp: Comment: TA 07/12/2024 , recheck 5 yrs Code(s): K63.5 - Polyp of colon Category: Medical Plan: repeat colonoscopy 5 yrs Medications: Refilled cholecalciferol (vitamin D3) 50 mcg PO DAILY 90 caps 3RF calcium carbonate (Calcium 600) 600 mg PO DAILY 90 tabs 3RF magnesium oxide 400 mg PO DAILY 90 tabs 3RF
== END 2024-08-24 13:13 | disposition home or self-care (01) ==
PROVIDERS: PCP Internal Medicine; Visit Provider Internal Medicine
DX: N81.4 Uterovaginal prolapse, unspecified (principal); C50.912 Malignant neoplasm of unspecified site of left female breast; K63.5 Polyp of colon

== ENCOUNTER → 2024-08-24 12:15 | Outpatient (BNVA) | payer OTHER, SELFPAY | PROVIDERS: PCP Internal Medicine; Visit Provider Internal Medicine | DX: N81.4 Uterovaginal prolapse, unspecified (principal); K63.5 Polyp of colon; C50.912 Malignant neoplasm of unspecified site of left female breast | CPT/HCPCS: 96127; 99212 ==

== ENCOUNTER 2024-08-27 14:53 | Outpatient (AMB) | payer OTHER, SELFPAY ==
--- NOTE | 2024-08-27 15:31 | MHC.OFFVIS ---
Vital Signs 08/27/24 15:41 Height 5 ft 7 in Weight 176 lb 8 oz BMI 27.6 BP 117/58 L Blood Pressure Location Lt brachial Position Sitting Pulse 73 Intake Visit Reasons: follow up Intake Note: Patient is seen in office for 6 month follow up visit, breast exam. Pt c/o: pt states here to follow up after lumpectomy , where the scar post surgery feels a lump is not happy, is painful when raising hand feels something is pulling inside and it hurts, feels tiny knots in the scar Central Office Repairer Required: Yes Central Office Repairer Language: Mexican Central Office Repairer Services: Central Office Repairer Present Central Office Repairer Name: [email or web address] ([id number]) Information Interpreted: non-clinical & clinical Jet Blade Polisher: Jet Blade Polisher Present Accompanied by: Self / Same As Patient Allergies No Known Allergies Allergy (Verified 08/27/24 15:41) Medication List - Last Reconciled 08/27/24 by Telly Bundy MD bisacodyl (Dulcolax (bisacodyl)) 10 mg (2 x 5 mg) PO BEDTIME calcium carbonate (Calcium 600) 600 mg PO DAILY cholecalciferol (vitamin D3) 50 mcg PO DAILY docusate sodium 100 mg PO BEDTIME magnesium oxide 400 mg PO DAILY tamoxifen 20 mg PO DAILY HPI HPI follow up: Details: She underwent left breast lumpectomy and sentinel biopsy last 01/05/2024 for invasive ductal cancer. . Her path report at that time showed T1 N0 invasive ductal carcinoma, ERPR positive HER2 negative. She has completed radiotherapy. She feels well overall. She does admit to some pain on the excision site in the left axilla. She is also on hormonal treatment tamoxifen She also says that she just had surgery for return prolapse 2 weeks ago. This was done in [facility]. She says she is feeling well from this.. [facility] Medical History (Updated 08/27/24 @ 15:58 by Telly Bundy MD) History of left breast cancer Endometrial polyp HTN (hypertension) Invasive ductal carcinoma of left breast Surgical History History of gynecologic surgery History of lumpectomy of left breast (~01/05/24) Hx of partial thyroidectomy S/P sclerotherapy of varicose veins Family History Mother No problems noted. Other Leukemia Social History Household Members Other:: , 2 children Housing: House Alcohol intake: never Patient Tobacco Use Status: Never used Tobacco e-Cigarette/Vaping Use: Never Used service: No Current occupational status: unemployed Cognitive needs: No Hearing needs: No Vision needs: No Female Reproductive History Menstrual Age of Menarche: 12 Review of Systems Const Denies chills and Denies fever(s) Card Denies chest pain, Denies dyspnea and Denies dyspnea on exertion Resp Denies cough, Denies dyspnea and Denies dyspnea on exertion GI Denies hematochezia and Denies change in bowel habits Denies hematuria Musc Denies back pain and Denies limited range of motion Neuro Denies focal weakness and Denies convulsions Psych Denies depression and Denies mood swings Physical Exam Vital Signs: Last Vital Signs Pulse 73 08/27/24 15:41 BP 117/58 L 08/27/24 15:41 BMI result Body Mass Index 27.6 Const General: comfortable and no acute distress Orientation/consciousness: patient oriented x3 Neck Neck: Yes no lymphadenopathy Chest Other: No palpable masses on the breast, no axillary lymphadenopathy, no nipple or skin changes Resp Auscultation: clear to auscultation bilaterally Cardio Rhythm: regular rhythm GI Palpation (GI): Soft to palpation, nontender and no guarding Neuro General: patient oriented x3 Assessment & Plan Assessment & Plan (1) History of left breast cancer: Code(s): Z85.3 - Personal history of malignant neoplasm of breast Category: Medical Plan: She had a T1 N0 invasive ductal carcinoma. She had lumpectomy for this in December, and she has completed radiotherapy. She is currently on tamoxifen as well current exam does not reveal any palpable mass I assured her about this as she was worried about a residual cancer I told her that she is to undergo regular yearly mammograms. I will schedule this for her for November of 2024. I will see her in the office after her mammogram next year She is also to continue to follow up with Dr. Blakely of Oncology. The visit was done with an athletic monitor. Orders: Orders MM screening mammo BI 3 Months Z12.31 - Encounter for screening mammogram for malignant neoplasm of breast, Z85.3 - Personal history of malignant neoplasm of breast Coding Level of Care Code Est Pt Level 3 (71577) Diagnoses History of left breast cancer Z85.3
[2024-08-27 15:41] VITALS: BP 117/58; PULSE 73; BMI 27.6
== END 2024-08-27 15:57 | disposition home or self-care (01) ==
PROVIDERS: PCP Internal Medicine; Visit Provider Surgery
DX: Z85.3 Personal history of malignant neoplasm of breast (principal)
CPT/HCPCS: 99213

== ENCOUNTER → 2024-08-27 14:53 | Outpatient (BNVA) | payer OTHER, SELFPAY | PROVIDERS: PCP Internal Medicine; Visit Provider Surgery | DX: Z85.3 Personal history of malignant neoplasm of breast (principal) | CPT/HCPCS: 99212 ==

== ENCOUNTER 2024-10-03 08:40 | Outpatient (REF) | payer OTHER, SELFPAY ==
--- NOTE | ~2024-10-03 | MM_ITS ---
EXAMINATION: MM DIAGNOSTIC DIGITAL BREAST TOMOSYNTHESIS, BILATERAL CLINICAL INFORMATION: History of left breast cancer in 2023 status post lumpectomy and conservation therapy. COMPARISON: Mammography: Comparison is made with relevant prior exams. TECHNIQUE: Digital breast mammography with tomosynthesis is performed in both the craniocaudal and mediolateral oblique views along with computer-aided detection (CAD). FINDINGS: The breasts are heterogeneously dense, which may obscure small masses (ACR BI-RADS breast composition Category c). Left lumpectomy changes are stable. There are no significant masses, abnormal calcifications, or other abnormalities. Results are provided to the patient at time of visit by the technologist. MM/MM tomosynthesis diagnostic BI IMPRESSION: There are no significant changes from prior study. ASSESSMENT: BI-RADS BI-RADS 2 - Benign Findings RECOMMENDATION: 1 year F/U This patient's information was entered into a reminder system with a target due date for their next mammogram. Electronically signed by: Kenyetta Coburn DO 10/03/2024 09:20 AM VICKEY
--- OUTSIDE RECORDS SUMMARY | 2024-10-03 08:56 | XMS_ITS | Clinical Summary ---
Author Organization [facility] Address [address] [place] [address] Care Team Providers Care Varnishing Unit Tool Setter Name Role Phone Unavailable Primary Care Provider Unavailabl e Source Comments PLEASE NOTE, if this patient is a minor, it may be UNLAWFUL to discuss sensitive information that is contained in these records (such as FAMILY PLANNING, MENTAL HEALTH or SUBSTANCE ABUSE) with the minor patient's parent or other person without the patient's specific authorization.[facility] Social History Tobacco Use Types Packs/Day Years Used Date Smoking Tobacco: Never Assessed Social Connections Answer Date Recorded Connectedness 0 05/27/2024 Financial Resource Strain Answer Date R ecorded Financial Resource Strain 0 2023 Stress Answer Date Recorded Stress 0 09/20/2023 Physical Activity Answer Date Recorded Physical Activity 0 09/20/2023 Food Insecurity Answer Date Recorded Food 0 06/07/2024 Transportation Needs Answer Date Record ed Transportation 0 09/20/2023 Housing Stability Answer Date Recorded Housing 0 09/20/2023 Safety and Environment Answer Date Skip rded Safety 0 09/20/2023 Utilities Answer Date Recorded Utilities 0 09/20/2023 Employment Answer Date Recorded Stress 0 05/27/2024 Comments Unknown Sex and Gender Information Value Date Recorded Sex Assigned at Not on file Legal Sex Female 6:19 AM PST Gender Identity Not on file Sexual Orientation Not on file Plan of Treatment Health Maintenance Due Date Last Done Comments Diabetes Screening 1968 HPV Screening 1968 Hepatitis C Screening 1968 Lipid Screening 1968 Pap + HPV 1968 Tobacco Screening 1968 HIV Screening 1983 Annual Preventive Care Visit 1986 Hypertension Screening (#1) 1986 Imm-DTaP/Tdap/Td (1 - Tdap) 1987 Imm-Hepatitis B (1 of 3 - 19+ 3-dose series) 7 Cervical Cancer Screening 1989 Pap Smear 1989 Breast Cancer Screening (Mammogram) 2008 CT Colonography 2013 Colonoscopy 2013 Colorectal Cancer Screening 2013 FIT/gFOBT 2013 Fecal DNA 2013 Flexible Sigmoidoscopy 2013 Imm-Zoster, Recombinant (1 of 2) 2018 Ffu-KWKPD-64 ( season) 2024 Imm-Influenza (#1) 2024 Alcohol and Drug Screen 09/12/2024 Depression Annual Screen 09/12/2024 Cervical Ablation/Cold-Knife Conization Discontinued Cervical Cryotherapy Discontinued Colposcopy Discontinued Endometrial Biopsy Discontinued Excision/Leep Discontinued HPV Genotyping Discontinued Vaginal Pap Discontinued Vulvoscopy Discontinued
== END 2024-10-03 08:41 | disposition home or self-care (01) ==
LOC: HO.MAMMO 08:40
PROVIDERS: PCP Internal Medicine; Visit Provider Internal Medicine
DX: Z85.3 Personal history of malignant neoplasm of breast (principal)
CPT/HCPCS: 77062; 77066

== ENCOUNTER → 2024-10-03 09:15 | Outpatient (BNV) | payer OTHER, SELFPAY | PROVIDERS: PCP Internal Medicine; Visit Provider Internal Medicine | DX: R92.333 Mammographic heterogeneous density, bilateral breasts (principal) | CPT/HCPCS: 77062; 77066 ==

== ENCOUNTER 2024-10-26 09:17 | Outpatient (AMB) | payer OTHER, SELFPAY ==
--- NOTE | 2024-10-26 09:19 | A.OFFVIS_ITS ---
Vital Signs 10/26/24 09:20 Height 5 ft 7 in Weight 176 lb 5.917 oz BMI 27.6 BP 130/60 Blood Pressure Location Rt brachial Position Sitting Pulse 64 Pulse Source Pulse Oximeter Pulse Oximetry (%) 97 Oxygen Delivery Method Room Air Intake Visit Reasons: 3 mos FUV. Needs 30 min. Intake Note: ESTABLISHED PATIENT for mgmt of constipation. Chief Complaint; New onset s/p bladder mesh + hysterectomy of B/L LQ abd pain, worse on the right than left. Pt states that they had their surgery through [facility] but has not spoken to their surgeon about this presentation yet. Pt also reports intermittent, worsening reflux. Machine Adjuster Leader Case Trim Required: Yes Machine Adjuster Leader Case Trim Services: Machine Adjuster Leader Case Trim Present Machine Adjuster Leader Case Trim Name: Salma [id number] Information Interpreted: non-clinical & clinical Accompanied by: Self / Same As Patient Allergies No Known Allergies Allergy (Verified 10/26/24 09:19) HPI HPI 3 mos FUV. Needs 30 min.: Details: LAST VISIT: Constipation Status post colonoscopy Plan Colonoscopy repeat in 5 years. Stop senna and start Dulcolax. Patient will be having surgery and will be most likely on pain medication that would cause worsening in her constipation. Script for stool softeners given to patient. Increase fluid intake and activity to promote better bowel motility. Patient was also encouraged to take fiber supplement with probiotics. Follow-up in the office in 3 months, sooner on as needed basis. She is agreeable to this plan and verbalizes understanding of instructions. She was given the opportunity to ask questions and all questions answered. Medications New bisacodyl (Dulcolax (bisacodyl)) 10 mg (2 x 5 mg) PO BEDTIME 60 tabs 4RF docusate sodium 100 mg PO BEDTIME 90 caps 3RF K59.00 Discontinued sennosides Discontinued Reason: Doctor's Order 17.2 mg (2 x 8.6 mg) PO BEDTIME 180 tabs 3RF constipation K59.00 TODAY'S VISIT Patient is here today for follow-up. Patient reports that she had her surgery and is doing well. Had follow-up appointment with the surgeon and was told that everything was healing well. However patient reports worsening epigastric pain and reflux. Patient states that she took quite a bit of ibuprofen and Tylenol when recovering from her surgery for pain. Symptoms started about couple weeks ago. Patient reports that she has been moving her bowels well in the last couple weeks and has not needed to take Dulcolax. Patient denies any nausea or vomiting. Denies any dyspepsia, dysphagia or odynophagia. Denies melena or hematochezia. Reports to have a good appetite. [facility] Medical History History of left breast cancer Endometrial polyp HTN (hypertension) Invasive ductal carcinoma of left breast Surgical History H/O bladder repair surgery (~08/14/24) History of hysterectomy History of gynecologic surgery History of lumpectomy of left breast (~01/05/24) Hx of partial thyroidectomy S/P sclerotherapy of varicose veins Family History Mother No problems noted. Other Leukemia Social History Household Members Other:: , 2 children Housing: House Alcohol intake: never Patient Tobacco Use Status: Never used Tobacco e-Cigarette/Vaping Use: Never Used service: No Current occupational status: unemployed Cognitive needs: No Hearing needs: No Vision needs: No Female Reproductive History Menstrual Age of Menarche: 12 Review of Systems Const Denies weight gain and Denies weight loss ENT Reports no additional complaints, Denies dysphagia and Denies odynophagia Card Reports no additional complaints Resp Reports no additional complaints GI Reports abdominal pain (Epigastric), Denies belching, Denies melena, Denies bloating, Denies change in bowel habits, Denies dysphagia, Denies excessive flatus, Denies dyspepsia, Reports heartburn, Denies diarrhea, Denies loose stools, Denies nausea, Denies odynophagia and Denies vomiting Reports no additional complaints Musc Reports no additional complaints Neuro Reports no additional complaints Psych Reports no additional complaints Endo Reports no additional complaints Physical Exam Const General: healthy appearing, no acute distress and well developed Nutritional Appearance: well nourished Orientation/consciousness: patient oriented x3 Eyes General: appearance normal, both eyes and all related structures Neck Neck: Yes normal visual inspection, Yes full ROM and Yes trachea midline Thyroid: Thyroid normal Resp Effort & Inspection: normal respiratory effort, able to speak in complete sentences, no tracheal deviation and symmetric chest movement Auscultation: clear to auscultation bilaterally Cardio Rate: regular rate GI Inspection: Yes normal to inspection and No distended Palpation (GI): Soft to palpation, not firm, nontender and No hepatosplenomegaly present Auscultation: normal bowel sounds General: Yes no CVA tenderness Back/Spine/Pelvis Back: no CVA tenderness Skin General skin exam: elasticity normal, turgor normal and dry skin Neuro General: patient oriented x3 Psych Appearance: grossly normal Mental Status: mental status grossly normal Assessment & Plan Assessment & Plan (1) Constipation: Code(s): K59.00 - Constipation, unspecified Qualifiers: Constipation type: slow transit constipation Qualified Code(s): K59.01 - Slow transit constipation (2) Postprandial epigastric pain: Code(s): R10.13 - Epigastric pain (3) GERD (gastroesophageal reflux disease): Code(s): K21.9 - Gastro-esophageal reflux disease without esophagitis Qualifiers: Esophagitis presence: esophagitis presence not specified Qualified Code(s): K21.9 - Gastro-esophageal reflux disease without esophagitis Plan Discussed with patient avoiding dietary triggers and late night snacking. Staying upright for minimum 3 hours after meals discussed with patient. Patient will start taking pantoprazole in the morning and famotidine at bedtime. Most likely reflux caused by NSAIDs. Patient will avoid taking NSAIDs may take Tylenol as needed. Follow-up in 2-3 months, sooner on as needed basis. She is agreeable to this plan and verbalizes understanding of instructions. She was given the opportunity to ask questions and all questions answered. Thank you for allowing me to participate in her care Medications: New famotidine (Pepcid) 20 mg PO BEDTIME 30 tabs 3RF K21.9 - Gastro-esophageal reflux disease without esophagitis pantoprazole take one tablet half an hour before breakfast 40 mg PO DAILY 30 tabs 2RF K21.9 - Gastro-esophageal reflux disease without esophagitis Coding Level of Care Code Est Pt Level 3 (26416) Diagnoses Slow transit constipation K59.01 Constipation type: slow transit constipation Postprandial epigastric pain R10.13 Gastroesophageal reflux disease, unspecified whether esophagitis present K21.9 Esophagitis presence: esophagitis presence not specified Time Spent (min) 25 Comment 15 minutes spent with patient and additional 10 minutes spent
[2024-10-26 09:20] VITALS: BP 130/60; PULSE 64; O2SAT 97; BMI 27.6
--- OUTSIDE RECORDS SUMMARY | 2024-10-26 09:40 | XMS_ITS | Clinical Summary ---
Author Organization [facility] Address [address] [place] [address] Care Team Providers Care No Bake Molder Name Role Phone Unavailable Primary Care Provider [...] 2013 Imm-Zoster, Recombinant (1 of 2) 2018 [id number] ( season) 2024 Imm-Influenza (#1) 2024 Alcohol and Drug Screen 09/12/2024 Depression Annual Screen 09/12/2024 Cervical Ablation/Cold-Knife Conization Discontinued Cervical Cryotherapy Discontinued Colposcopy Discontinued Endometrial Biopsy Discontinued Excision/Leep Discontinued HPV Genotyping Discontinued Vaginal Pap Discontinued Vulvoscopy Discontinued
== END 2024-10-26 09:49 | disposition home or self-care (01) ==
PROVIDERS: PCP Internal Medicine; Visit Provider Nurse Practitioner Family
DX: K59.01 Slow transit constipation (principal); R10.13 Epigastric pain; K21.9 Gastro-esophageal reflux disease without esophagitis
CPT/HCPCS: 99213

== ENCOUNTER → 2024-10-26 09:17 | Outpatient (BNVA) | payer OTHER, SELFPAY | PROVIDERS: PCP Internal Medicine; Visit Provider Nurse Practitioner Family | DX: K21.9 Gastro-esophageal reflux disease without esophagitis (principal); K59.01 Slow transit constipation; R10.13 Epigastric pain | CPT/HCPCS: 99212 ==

== ENCOUNTER 2025-03-13 10:46 | Outpatient (AMB) | payer OTHER, SELFPAY ==
--- NOTE | 2025-03-13 10:48 | A.OFFPC_ITS ---
Vital Signs 03/13/25 10:49 Height 5 ft 7 in Weight 175 lb BMI 27.4 BP 128/78 Blood Pressure Location Lt brachial Position Sitting Respiration 20 Pulse 86 Pulse Source Pulse Oximeter Temp 98.1 F Temp Source Oral Pulse Oximetry (%) 98 Oxygen Delivery Method Room Air Intake Visit Reasons: PE Intake Note: Pt is here today for PE. Allergies No Known Allergies Allergy (Verified 03/13/25 10:51) Medication List - Last Reconciled 03/13/25 by Arlette Humphrey MD bisacodyl (Dulcolax (bisacodyl)) 10 mg (2 x 5 mg) PO BEDTIME calcium carbonate (Calcium 600) 600 mg PO DAILY cholecalciferol (vitamin D3) 50 mcg PO DAILY docusate sodium 100 mg PO BEDTIME famotidine (Pepcid) 20 mg PO BEDTIME magnesium oxide 400 mg PO DAILY pantoprazole 40 mg PO DAILY tamoxifen 20 mg PO DAILY Tobacco use date assessed: 03/13/25 Dental Screening Dental Screen Date: 03/13/25 Did you have a dental visit in the last 12 months?: Yes Did you have a dental problem in the last 6 months where you did not have access to dental care?: No Was dental information given to patient?: Patient has dentist HPI PE HPI Details Patient presents for physical. She complains of chronic left knee and lateral thigh pain worse when starting to walk and walking up and down the stairs. She denies any injury, joint swelling, lower back pain, weakness or numbness in extremities. [facility] Medical History (Updated 03/13/25 @ 11:40 by Arlette Humphrey MD) Endometrial polyp HTN (hypertension) Invasive ductal carcinoma of left breast Surgical History H/O bladder repair surgery (~08/14/24) History of hysterectomy History of gynecologic surgery History of lumpectomy of left breast (~01/05/24) Hx of partial thyroidectomy S/P sclerotherapy of varicose veins Family History Mother No problems noted. Other Leukemia Social History Household Members Other:: , 2 children Housing: House Alcohol intake: never Patient Tobacco Use Status: Never used Tobacco e-Cigarette/Vaping Use: Never Used service: No Current occupational status: unemployed Current occupational exposures/hazards: No Cognitive needs: No Hearing needs: No Vision needs: No Female Reproductive History Menstrual Age of Menarche: 12 Questionnaire PHQ-9 Over the last 2 weeks, how often have you been bothered by any of the following problems? 1. Little interest or pleasure in doing things: not at all 2. Feeling down, depressed, or hopeless: not at all 3. Trouble falling or staying asleep, or sleeping too much: not at all 4. Feeling tired or having little energy: not at all 5. Poor appetite or overeating: not at all 6. Feeling bad about yourself - or that you are a failure or have let yourself or your family down: not at all 7. Trouble concentrating on things, such as reading the newspaper or watching television: not at all 8. Moving or speaking so slowly that other people could have noticed. Or the opposite - being so fidgety or restless that you have been moving around a lot more than usual: not at all 9. Thoughts that you would be better off or of hurting yourself in some way: not at all Total score: 0 Depression Screening Interpretation: Negative Depression Screening Done: Yes 36548 - PHQ-9 Billing: Yes Source: Developed by Drs. Onur Mane, Jaqui Jean-Baptiste, Jordin Romero and colleagues, with an educational hamlet from [employer]. Thrive Questionnaire Date Thrive assessed: 03/13/25 I am a: Patient What is your living situation today?: I have a steady place to live Within the past 12 months, did the food you bought not last and you didn't have the money to get more?: Never true Within the past 12 months, did you worry whether your food would run out before you got money to buy more?: Never true Do you have trouble paying for medicines?: No Do you have trouble getting transportation to medical appointments?: No Do you have trouble paying your heating and electricity bill?: No Do you have trouble taking care of your child, family member or friend?: No Do you have trouble with day-to-day activities such as bathing, preparing meals, shopping, managing finances, etc.?: No Are you currently unemployed and looking for a job?: No Are you interested in more education?: No Please select the resources that you would like help with: None THRIVE Score: 0 AUDIT C Alcohol Use Questionnaire (AUDIT-C) 1. How often do you have a drink containing alcohol?: Never 3. How often do you have six or more drinks on one occasion?: Never Total Score: 0 ALICIA-7 AMB Questionnaire ALICIA-7 Date ALICIA - 7 assessed: 03/13/25 Feeling nervous, anxious, or on edge: 0 = Not at all Not being able to stop or control worryin = Not at all Worrying too much about different things: 0 = Not at all Trouble relaxin = Not at all Being so restless that it is hard to sit still: 0 = Not at all Becoming easily annoyed or irritable: 0 = Not at all Feeling afraid as if something awful might happen: 0 = Not at all Total ALICIA-7 score (0-4 normal; 5-9 mild; 10-14 moderate; 15-21 severe): 0 Source: Developed by Drs. Onur Mane, Jaqui Jean-Baptiste, Jordin Romero and colleagues, with an educational hamlet from [employer]. ALICIA-7 Assessment Billing ALICIA-7 Assessment Tool: ALICIA-7 Assessment 18035 Review of Systems Const All systems reviewed & are unremarkable except as noted in HPI and below Eyes Reports no additional complaints ENT Reports no additional complaints Card Reports no additional complaints Resp Reports no additional complaints GI Reports no additional complaints Reports no additional complaints Physical exam (Primary Care) Vital Signs: Last Vital Signs Temp 98.1 F 03/13/25 10:49 Pulse 86 03/13/25 10:49 Resp 20 03/13/25 10:49 BP 128/78 03/13/25 10:49 Pulse Ox 98 03/13/25 10:49 Oxygen Delivery Method Room Air 03/13/25 10:49 BMI result Body Mass Index 27.4 Tobacco/Smoking Status: Tobacco use Status Tobacco use date assessed 03/13/25 03/13/25 10:56 Patient Tobacco Use Status Never used Tobacco 03/13/25 10:56 e-Cigarette/Vaping Use Never Used 03/13/25 10:51 PHQ-9: PHQ-9 Score PHQ-9: Total score 0 03/13/25 10:56 Depression Screening Interpretation: Negative Thrive Assessment: Date of Thrive Assessment Date Thrive assessed 03/13/25 03/13/25 10:56 Const General: no acute distress HENMT Ears: hearing grossly normal bilaterally Face and sinus: Yes normal facial exam Mouth: Normal oral and palatal mucosa present Throat: Yes posterior oropharynx normal Eyes General: appearance normal, both eyes and all related structures Neck Neck: Yes no lymphadenopathy and Yes supple Resp Effort & Inspection: normal respiratory effort Auscultation: clear to auscultation bilaterally Cardio Rhythm: regular rhythm Heart sounds: S1 normal heart sound present and S2 normal heart sound present GI Inspection: Yes normal to inspection Palpation (GI): Soft to palpation Percussion: Yes normal to percussion Auscultation: normal bowel sounds Extrem Other: Slightly decreased range of motion of the left knee lateral aspect tenderness no soft tissue swelling erythema or warmth. There is reproducible tenderness over left trochanteric area, both hips with full range of motion General: Yes no clubbing, cyanosis or edema Coding Level of Care Code Est Pt Prev Care 40-64y(41493) Diagnoses Knee pain, left M25.562 Annual physical exam Z00.00 Invasive ductal carcinoma of left breast C50.912 Additional Codes ALICIA-7 Assessment Billing - ALICIA-7 Assessment Tool: ALICIA-7 Assessment 09583 ([id number]) PHQ-9 - 94983 - PHQ-9 Billing: Yes ([id number]) Assessment & Plan Assessment & Plan (1) Knee pain, left: Code(s): M25.562 - Pain in left knee Category: Medical Plan: FOR CHRONIC KNEE PAIN OBTAIN X-RAY OF LEFT HIP AND LEFT KNEE, MELOXICAM PRESCRIBED PATIENT WILL BE REFERRED TO PHYSICAL THERAPY (2) Annual physical exam: Comment: s/p [facility] Code(s): Z00.00 - Encounter for general adult medical examination without abnormal f indings Category: Medical Plan: Well-balanced diet regular physical activity discussed with the patient she is up-to-date with the mammogram and colonoscopy, had total hysterectomy. Patient will return for fasting blood work (3) Invasive ductal carcinoma of left breast: Comment: w/lumpectomy 01/05/24, RTx at [facility], on Tamoxifen, f/u Dr. Blakely Code(s): C50.912 - Malignant neoplasm of unspecified site of left female breast Category: Medical Plan: On tamoxifen follow-up with Oncology Orders: Orders Complete Blood Count Auto Diff Today Z00.00 - Encounter for general adult medical examination without abnormal findings TSH reflex Free T4 Today Z00.00 - Encounter for general adult medical examination without abnormal findings XR knee LT 2V Today M25.562 - Pain in left knee Comprehensive [place]. Panel Fast Today Z00.00 - Encounter for general adult medical examination without abnormal findings Lipid Panel Today Z00.00 - Encounter for general adult medical examination without abnormal findings XR hip LT min 2V Today M25.552 - Pain in left hip Medications: New meloxicam 15 mg PO DAILY 10 tabs 0RF
[2025-03-13 10:49] VITALS: BP 128/78; PULSE 86; RESP 20; TEMP 36.7; O2SAT 98; BMI 27.4
--- OUTSIDE RECORDS SUMMARY | 2025-03-13 11:28 | XMS_ITS | Clinical Summary ---
Author Organization [facility] Address [address] [place] [address] Care Team Providers Care Environmental Sampling Technician Name Role Phone Unavailable Primary Care Provider [...] Health Maintenance Due Date Last Done Comments Anxiety Screening 1968 Diabetes Screening 1968 HPV Screening 1968 Hepatitis C Screening 1968 Lipid Screening 1968 Pap + HPV 1968 Tobacco Screening 1968 HIV Screening 1983 Hypertension Screening (#1) 1986 Imm-DTaP/Tdap/Td (1 - Tdap) 1987 Imm-Hepatitis B (1 of 3 - 19+ 3-dose series) 7 Cervical Cancer Screening 1989 Pap Smear 1989 Breast Cancer Screening (Mammogram) 2008 CT Colonography 2013 Colonoscopy 2013 Colorectal Cancer Screening 2013 FIT/gFOBT 2013 Fecal DNA 2013 Flexible Sigmoidoscopy 2013 Imm-Pneumococcal 50+ (1 of 1 - PCV) 2018 Imm-Zoster, Recombinant (1 of 2) 2018 [id number] ( - 2023- season) 2024 Alcohol and Drug Screen 09/12/2024 Depression Annual Screen 09/12/2024 Imm-Influenza (Season Ended) 2025 Cervical Ablation/Cold-Knife Conization Discontinued Cervical Cryotherapy Discontinued Colposcopy Discontinued Endometrial Biopsy Discontinued Excision/Leep Discontinued HPV Genotyping Discontinued Vaginal Pap Discontinued Vulvoscopy Discontinued
== END 2025-03-13 11:41 | disposition home or self-care (01) ==
LOC: HO.HMCC 10:48
PROVIDERS: PCP Internal Medicine; Visit Provider Internal Medicine
DX: M25.562 Pain in left knee (principal); Z00.00 Encounter for general adult medical examination without abnormal findings; C50.912 Malignant neoplasm of unspecified site of left female breast

== ENCOUNTER → 2025-03-13 10:46 | Outpatient (BNVA) | payer OTHER, SELFPAY | PROVIDERS: PCP Internal Medicine; Visit Provider Internal Medicine | DX: Z00.00 Encounter for general adult medical examination without abnormal findings (principal); M25.562 Pain in left knee; C50.912 Malignant neoplasm of unspecified site of left female breast | CPT/HCPCS: 96127; 99396 ==

== ENCOUNTER 2025-03-21 07:52 | Outpatient (REF) | payer OTHER, SELFPAY ==
--- NOTE | ~2025-03-21 | XR_ITS ---
EXAMINATION: XR HIP, LEFT CLINICAL INFORMATION: Z00.00 - Encounter for general adult medical examination without abnorma... COMPARISON: None available. TECHNIQUE: Two views of the left hip. FINDINGS: No fracture, dislocation, or suspicious bone lesion. There is normal alignment. There is minimal/early osteoarthrosis of the left hip joint. Normal femoral head contour without evidence of AVN. Imaged pelvis is intact. Normal-appearing soft tissues. XR/XR hip LT min 2V IMPRESSION: No acute bony abnormalities. Minimal/early degenerative changes left hip Electronically signed by: Carrlilo Urbina MD 03/21/2025 10:33 AM EDT
--- NOTE | ~2025-03-21 | XR_ITS ---
EXAMINATION: XR KNEE, LEFT CLINICAL INFORMATION: M25.562 - Pain in left knee COMPARISON: None available. TECHNIQUE: Two views of the left knee. FINDINGS: No fracture or joint effusion. Alignment is anatomic. Joint spaces are maintained. No abnormal soft tissue calcification. XR/XR knee LT 2V IMPRESSION: Normal left knee. Electronically signed by: Carrillo Urbina MD 03/21/2025 10:32 AM EDT
--- OUTSIDE RECORDS SUMMARY | 2025-03-21 07:54 | XMS_ITS | Clinical Summary ---
Author Organization [facility] Address [address] [place] [address] Care Team Providers Care Boarder Hand Name Role Phone Unavailable Primary Care Provider [...] 2018 Imm-Zoster, Recombinant (1 of 2) 2018 [id number] ( - 2023- season) 2024 Alcohol and Drug Screen 09/12/2024 Depression Annual Screen 09/12/2024 Imm-Influenza (Season Ended) 2025 Cervical Ablation/Cold-Knife Conization Discontinued Cervical Cryotherapy Discontinued Colposcopy Discontinued Endometrial Biopsy Discontinued Excision/Leep Discontinued HPV Genotyping Discontinued Vaginal Pap Discontinued Vulvoscopy Discontinued
[2025-03-21 10:46] LABS: MANUAL DIFF FLAG NO
[2025-03-21 11:00] LABS: Hematocrit 36.1 % (37.0-47.0); Hemoglobin 12.5 g/dl (12.0-16.0); Imm Gran Abs Auto 0.02 X10*3/uL (0.00-0.03); Imm Gran Pct Auto 0.4 % (0.0-0.4); Lymphocytes Absolute Auto 2.4 X10*3/uL (1.2-4.9); Mean Corpuscular HGB Conc 34.6 g/dl (31.0-35.0); Mean Corpuscular Hemoglobin 31.3 pg (27.0-33.0); Mean Corpuscular Volume 90.5 fL (80.0-98.0); NRBC Abs Auto 0.000 X10*3/uL (0.0-0.012); NRBC Pct Auto 0.0 /100WBC (0.0-0.2); Platelet Count 233 X10*3/uL (160-400); Red Blood Count 3.99 X10*6/uL (4.20-5.50); White Blood Count 5.5 X10*3/uL (4.8-10.8)
[2025-03-21 11:27] LABS: Alanine Aminotransferase 24 U/L (0-31); Albumin Level 4.3 g/dL (3.5-5.0); Alkaline Phosphatase 44 U/L (39-117); Anion Gap 11 (12-20); Aspartate Amino Transferase 24 U/L (5-31); Blood Urea Nitrogen 18 mg/dL (9-16); Calcium 9.1 mg/dL (8.4-10.2); Carbon Dioxide 26 mmol/L (22-29); Chloride 109 mmol/L (96-108); Cholesterol 142 mg/dL (<200); Estimated Glomerular Filt Rate > 60; HDL Cholesterol 55 mg/dL (>40); Potassium 4.0 mmol/L (3.3-5.1); Sodium 142 mmol/L (135-145); Total Protein 6.8 g/dL (6.5-8.0); Triglycerides 120 mg/dL (<150)
== END 2025-03-21 07:53 | disposition home or self-care (01) ==
LOC: HO.HMGCX 07:52
PROVIDERS: PCP Internal Medicine; Visit Provider Internal Medicine
DX: Z00.00 Encounter for general adult medical examination without abnormal findings (principal); C50.912 Malignant neoplasm of unspecified site of left female breast; M25.552 Pain in left hip; M25.562 Pain in left knee
CPT/HCPCS: 36415; 73502; 73560; 80053; 80061; 84443; 85025

== ENCOUNTER → 2025-03-21 08:34 | Outpatient (BNV) | payer OTHER, SELFPAY | PROVIDERS: PCP Internal Medicine; Visit Provider Radiology Diagnostic Radiology | DX: M25.552 Pain in left hip (principal); M25.562 Pain in left knee | CPT/HCPCS: 73502; 73560 ==